=== PATIENT | female | born 1990 | race Caucasian/White ===

== ENCOUNTER 2016-10-17 10:45 | Inpatient (IN) | payer OTHER ==
[2016-10-17 12:07] VITALS: BMI 19.9
--- NOTE | 2016-10-17 14:55 | HP ---
Admission [facility] Chief Complaint: DETOX [place] FOR HEROIN,ALCOHOL AND BENZO DEPENDENCE Allergies/Adverse Reactions: Allergies Allergy/AdvReac Type Severity Reaction Status Date / Time No Known Allergies Allergy Verified 10/17/16 13:39 History of Present Illness: 26 Y/O AA/FEMALE WITH A HX OF HEROIN,XANAX,KLONOPIN,COCAINE AND ALCOHOL DEPENDENCE SEEKING DETOX [place]. Exam Limitations: No Limitations - Ebola screening Have you traveled outside of the country in the last 21 days: No Have you had contact with anyone from an Ebola affected area: No Have you been sick,other than usual withdrawal symptoms: No Do you have a fever: No - Review of Systems Constitutional: Chills, Loss of Appetite, Night Sweats, Changes in sleep EENT: reports: Tearing, Nose Congestion Respiratory: reports: No Symptoms reported Cardiac: reports: No Symptoms Reported GI: reports: Diarrhea, Poor Appetite, Poor Fluid Intake : reports: No Symptoms Reported Musculoskeletal: reports: Muscle Pain (AND SPASMS) Integumentary: reports: Other (SORENESS TO IVD INJ SITES ON UPPER ARMS/THIGHS) Neuro: reports: No Symptoms reported Endocrine: reports: No Symptoms Reported Hematology: reports: Anemia Psychiatric: reports: Orientated x3, Agitated, Anxious Other Systems: Reviewed and Negative Patient History - Patient Medical History Hx Anemia: Yes (NO PILLS) Hx Asthma: No Hx Chronic Obstructive Pulmonary Disease (COPD): No Hx Cardiac Disorders: No Hx Hypertension: No Hx Hypercholesterolemia: No HX Cerebrovascular Accident: No Hx Seizures: No Hx Diabetes: No Hx Gastrointestinal Disorders: No Hx Genitourinary Disorders: No Hx Sexually Transmitted Disorders: No Hx Renal Disease (ESRD): No Hx Thyroid Disease: No Hx Human Immunodeficiency Virus (HIV): No (NEGATIVE HX) Hx Hepatitis C: No Hx Depression: No Hx Suicide Attempt: No (DENIES) Hx Bipolar Disorder: No Hx Schizophrenia: No - Patient Surgical History Past Surgical History: No Hx Neurologic Surgery: No Hx Cataract Extraction: No Hx Cardiac Surgery: No Hx Lung Surgery: No Hx Breast Surgery: No Hx Breast Biopsy: No Hx Abdominal Surgery: No Hx Appendectomy: No Hx Cholecystectomy: No Hx Genitourinary Surgery: No Hx Section: No Hx Orthopedic Surgery: No Hx Hysterectomy: No Anesthesia Reaction: No - PPD History Previous Implant?: Yes Documented Results: Negative w/o proof Implanted On Prior [facility] Admission?: No Results: TBD PPD to be Administered?: Yes - Reproductive History Patient is a Female of Child Bearing Age (11 -55 yrs old): Yes Last Menstrual Period: 09/17/16 Patient : No - Smoking Cessation Smoking history: Current every day smoker Have you smoked in the past 12 months: Yes Aproximately how many cigarettes per day: 2 Hx Chewing Tobacco Use: No Initiated information on smoking cessation: Yes 'Breaking Loose' booklet given: 10/17/16 - Substance & Tx. History Hx Alcohol Use: Yes (VODKA/WHISKY/CHAMPAGNE) Hx Substance Use: Yes (HEROIN/COCAINE/XANAX/KLONOPIN) Substance Use Type: Alcohol, Cocaine, Heroin, Tranquilizers Hx Substance Use Treatment: No (FIRST TIME IN [place] TODAY) - Substances Abused Heroin Route: Injection Frequency: Daily Amount used: 10 bags and up Age of first use: 25 Date of Last Use: 10/16/16 Alcohol Route: Oral Frequency: 3-6 times per week Amount used: 6 cups of vodka or whiskey Age of first use: 20 Date of Last Use: 10/12/16 xanax or klonopin Route: Oral Frequency: Daily Amount used: 10mg Age of first use: 25 Date of Last Use: 10/16/16 Cocaine Frequency: 1-3 times last 30 days Amount used: 10 BAGS/DAY Age of first use: 25 Date of Last Use: 10/06/16 Family Disease History - Family Disease History Family History: Denies Admission Physical Exam BHS - Vital Signs Vital Signs: Vital Signs - 24 hr 10/17/16 12:05 Temperature 98 F Pulse Rate 83 Respiratory 16 Rate Blood Pressure 105/64 - Physical General Appearance: Yes: Moderate Distress, Anxious HEENTM: Yes: EOMI, Normocephalic, [place], Pharynx Normal Respiratory: Yes: Chest Non-Tender, Lungs Clear, Normal Breath Sounds, No Respiratory Distress Neck: Yes: Supple, Trachea in good position Breast: Yes: Breast Exam Deferred Cardiology: Yes: Regular Rhythm, Regular Rate, S1, S2 Abdominal: Yes: Normal Bowel Sounds, Non Tender, Soft Genitourinary: Yes: Other (N/C) Back: Yes: Within Normal Limits Musculoskeletal: Yes: full range of Motion, Gait Steady Extremities: Yes: Normal Range of Motion, Non-Tender Neurological: Yes: rn occupational health II-XII NML intact, Fully Oriented, Alert, Motor Strength 5/5 Integumentary: Yes: Dry, Warm Lymphatic: Yes: Within Normal Limits - Diagnostic (1) Opioid dependence with withdrawal Current Visit: Yes Status: Acute (2) Sedative, hypnotic or anxiolytic dependence with withdrawal, uncomplicated Current Visit: Yes Status: Acute (3) Alcohol dependence with uncomplicated withdrawal Current Visit: Yes Status: Acute (4) Cocaine abuse Current Visit: Yes Status: Acute (5) History of anemia Current Visit: Yes Status: Suspected Cleared for Admission [facility] - Detox or Rehab [facility] Level of Care: Medically Managed Detox Regimen/Protocol: Methadone/Valium [facility] Breath Alcohol Content Breath Alcohol Content: 0 Urine Pregancy Test - Result Urine Test Results: Negative- NO Line Present Urine Drug Screen - Results Drug Screen Negative: No Urine Drug Screen Results: WONG-Cocaine, OPI-Opiates, MDMA-Ecstasy, BZO- Benzodiazepines, OXY-Oxycodone
[2016-10-17] MEDS ORDERED: MENTHOL/PHENOL 1 EACH UD MM PRN (15:12)
[2016-10-17] MEDS ORDERED: diphenhydrAMINE HCL 50 MG CAPSULE PO PRN (15:12)
[2016-10-17] MEDS ORDERED: guaiFENesin/D-METHORPHAN HB 10 ML UNIT-DOSE CUPS PO PRN (15:12)
[2016-10-17] MEDS ORDERED: MAG HYDROX/AL HYDROX/SIMETH 30 ML UNIT-DOSE CUP PO PRN (15:12)
[2016-10-17] MEDS ORDERED: IBUPROFEN 400 MG TABLET (FP) PO PRN (15:12)
[2016-10-17] MEDS ORDERED: ACETAMINOPHEN 325 MG TABLET (FP) PO PRN (15:12)
[2016-10-17] MEDS ORDERED: MAGNESIUM HYDROX 2400MG/30ML ORAL SUSPENSION 30 ML CUP PO PRN (15:12)
[2016-10-17] MEDS ORDERED: LOPERAMIDE HCL 2 MG CAPSULE PO PRN (15:12)
[2016-10-17] MEDS ORDERED: diazePAM 5 MG TABLET PO PRN (15:12)
[2016-10-17] MEDS ORDERED: NICOTINE POLACRILEX 2 MG GUM BC PRN (15:12)
[2016-10-17] MEDS ORDERED: MAGNESIUM CITRATE 300 ML BOTTLE PO PRN (15:12)
[2016-10-17] MEDS ORDERED: P-EPHED 60MG/TRIPROLIDI 2.5MG TABLET PO PRN (15:12)
[2016-10-17] MEDS ORDERED: diazePAM 5 MG TABLET PO ONE (15:31)
[2016-10-17] MEDS ORDERED: METHADONE HCL 10 MG TABLET (FOR DETOX USE ONLY) PO ONE ×2 (15:32→23:00)
[2016-10-17] MEDS ORDERED: METHADONE HCL 10 MG TABLET (FOR DETOX USE ONLY) ONE (17:50)
[2016-10-17 19:26] LABS: URINE APPEARANCE SLCLOUDY; URINE BILIRUBIN NEGATIVE (NEGATIVE); URINE BLOOD NEGATIVE (NEGATIVE); URINE COLOR YELLOW; URINE GLUCOSE (UA) NEGATIVE (NEGATIVE); URINE KETONE NEGATIVE (NEGATIVE); URINE LEUK ESTERASE NEGATIVE (NEGATIVE); URINE NITRITE NEGATIVE (NEGATIVE); URINE PROTEIN NEGATIVE (NEGATIVE); URINE UROBILINOGEN NEGATIVE E.U./dl (0.2-1.0)
[2016-10-17] MEDS: hydrOXYzine PAMOATE 25 MG CAPSULE (FP) PO PRN (19:58)
[2016-10-17] MEDS: NICOTINE 14 MG/24 HOURS TOPICAL PATCH TD SCH (20:25)
[2016-10-17] MEDS ORDERED: THIAMINE HCL 100 MG TABLET (FP) PO SCH (22:00)
[2016-10-17] MEDS: diazePAM 5 MG TABLET PO SCH (22:27)
[2016-10-18] MEDS: diazePAM 5 MG TABLET PO SCH (05:40)
[2016-10-18] MEDS ORDERED: ASPIRIN 81 MG CHEWABLE TABLETS PO SCH (10:00)
[2016-10-18] MEDS: NICOTINE 14 MG/24 HOURS TOPICAL PATCH TD SCH (10:00)
[2016-10-18] MEDS ORDERED: PRENATAL VITAMINS W/ FOLIC ACID TABLET (FP) PO SCH (10:00)
[2016-10-18] MEDS ORDERED: METHADONE HCL 10 MG TABLET (FOR DETOX USE ONLY) PO SCH (10:00)
[2016-10-18] MEDS: hydrOXYzine PAMOATE 25 MG CAPSULE (FP) PO PRN (10:00)
[2016-10-18 10:01] VITALS: BP 112/84; PULSE 93; TEMP 98.1
[2016-10-18 10:14] LABS: MCHC 28.9 g/dl (32.0-36.0); MEAN CELL VOLUME 67.7 fl (80-96); MEAN PLT VOLUME 8.7 fl (7.5-11.1); PLATELET COUNT 436 K/MM3 (134-434); RDW 18.8 % (11.6-15.6); WHITE BLOOD COUNT 7.6 K/mm3 (4.0-10.0)
[2016-10-18 10:21] LABS: MCH 19.5 pg (25.7-33.7)
[2016-10-18 10:42] LABS: ALBUMIN 4.2 g/dl (3.4-5.0); ALK PHOS 70 U/L (45-117); ANION GAP 10 (8-16); BILIRUBIN,TOTAL 0.4 mg/dL (0.2-1.0); CALCIUM 9.3 mg/dL (8.5-10.1); CO2 26 mmol/L (21-32); CREATININE 0.7 mg/dL (0.55-1.02); GLUCOSE,RANDOM 76 mg/dL (74-106); SGOT/AST 27 U/L (15-37); SGPT/ALT 15 U/L (12-78); TOT PROT 8.4 g/dl (6.4-8.2)
--- NOTE | 2016-10-18 10:59 | DS ---
[facility] Detox Discharge Summary Admission Date: 10/17/16 Discharge Date: 10/18/16 - History Present History: Alcohol Dependence, Cocaine Dependence, Opioid Dependence, Sedative Dependence - Physical Exam Results Vital Signs: Vital Signs Temperature 98.1 F 10/18/16 10:00 Pulse Rate 93 H 10/18/16 10:00 Respiratory Rate 20 10/18/16 10:00 Blood Pressure 112/84 10/18/16 10:00 O2 Sat by Pulse Oximetry (%) - Treatment Hospital Course: Detox Protocol Followed - Diagnosis (1) Alcohol dependence with uncomplicated withdrawal Current Visit: Yes Status: Chronic (2) Cocaine abuse Current Visit: Yes Status: Chronic (3) Opioid dependence with withdrawal Current Visit: Yes Status: Acute (4) Sedative, hypnotic or anxiolytic dependence with withdrawal, uncomplicated Current Visit: Yes Status: Chronic (5) History of anemia Current Visit: Yes Status: Chronic - AMA Did Patient Leave Against Medical Advice: Yes (pt insistent on leaving unit . )
[2016-10-18 11:53] LABS: SICKLE CELL SCREEN NEGATIVE (NEGATIVE)
[2016-10-18 12:24] LABS: HYPOCHROMIA 4+
[2016-10-18 12:25] LABS: ANISOCYTOSIS 2+; MICROCYTOSIS 2+; OVALOCYTES 1+; TARGET CELLS 1+
--- NOTE | 2016-10-18 12:28 | EKG ---
Test Reason : Blood Pressure : / mmHG Vent. Rate : 070 BPM Atrial Rate : 070 BPM P-R Int : 148 ms QRS Dur : 076 ms QT Int : 368 ms P-R-T Axes : 043 054 045 degrees QTc Int : 397 ms NORMAL SINUS RHYTHM WITH SINUS ARRHYTHMIA SEPTAL INFARCT , AGE UNDETERMINED ABNORMAL ECG NO PREVIOUS ECGS AVAILABLE Confirmed by MYRON BANEGAS MD ([id number]) on 10/18/2016 12:28:10 PM Referred By: Confirmed By:MYRON BANEGAS MD
[2016-10-19] MEDS ORDERED: diazePAM 5 MG TABLET PO SCH (10:00)
[2016-10-19] MEDS ORDERED: METHADONE HCL 5 MG TABLET (FOR DETOX USE ONLY) PO SCH (10:00)
--- NOTE | 2016-10-19 16:18 | EKG ---
Test Reason : Blood Pressure : / mmHG Vent. Rate : 078 BPM Atrial Rate : 078 BPM P-R Int : 158 ms QRS Dur : 088 ms QT Int : 396 ms P-R-T Axes : 035 042 038 degrees QTc Int : 451 ms NORMAL SINUS RHYTHM NORMAL ECG WHEN COMPARED WITH ECG OF 17-OCT-2016 17:36, CRITERIA FOR SEPTAL INFARCT ARE NO LONGER PRESENT Confirmed by ANNAMARIA OLIVEIRA MD ([id number]) on 10/19/2016 4:18:38 PM Referred By: Confirmed By:ANNAMARIA OLIVEIRA MD
[2016-10-21] MEDS ORDERED: diazePAM 5 MG TABLET PO SCH (10:00)
[2016-10-21] MEDS ORDERED: METHADONE HCL 10 MG TABLET (FOR DETOX USE ONLY) PO SCH (10:00)
[2016-10-22] MEDS ORDERED: METHADONE HCL 5 MG TABLET (FOR DETOX USE ONLY) PO SCH (06:00)
== END 2016-10-18 10:55 | disposition left against medical advice (07) | DRG 770 ==
LOC: YASAS 10:45 → Y6N 15:28
PROVIDERS: ADMIT Internal Medicine Addiction Medicine; ATTEND Internal Medicine Addiction Medicine
PROC: HZ2ZZZZ Detoxification Services for Substance Abuse Treatment (ICD-10-PCS; principal; 2016-10-18)
DX: F11.23 Opioid dependence with withdrawal (principal); F13.230 Sedative, hypnotic or anxiolytic dependence with withdrawal, uncomplicated; F10.230 Alcohol dependence with withdrawal, uncomplicated; F41.8 Other specified anxiety disorders; D64.9 Anemia, unspecified
CPT/HCPCS: 36415; 80053; 81003; 85027; 85660; 86593; 93005; 93010

== ENCOUNTER 2017-03-20 08:22 | Inpatient (IN) | payer OTHER ==
[2017-03-20 10:05] VITALS: BMI 21.9
--- NOTE | 2017-03-20 13:01 | HP ---
COWS - Scale Resting Pulse: 0= ME 80 or Below Sweatin= Chills/Flushing Restless Observation: 3= Extraneous Movement Pupil Size: 0= Normal to Room Light Bone or Joint Aches: 2= Severe Diffuse Aches Runny Nose/ Eye Tearin= Runny Nose/Eyes GI Upset > 30mins: 1= Stomach Cramp Tremor Observation: 1= Tremor [place], Not Seen Yawning Observation: 1= 1-2x During Session Anxiety or Irritability: 2=Irritable/Anxious Goose Flesh Skin: 0=Smooth Skin COWS Score: 13 Admission ROS S - HPI Chief Complaint: DETOX [place] FOR HEROIN DEPENDENCE Allergies/Adverse Reactions: Allergies Allergy/AdvReac Type Severity Reaction Status Date / Time No Known Allergies Allergy Verified 03/20/17 10:22 History of Present Illness: 26 Y/O AA/MALE WITH A X OF HEROIN, COCAINE AND MARIJUANA DEPENDENCE SEEKING REHAB [place]. Exam Limitations: No Limitations - Ebola screening Have you traveled outside of the country in the last 21 days: No Have you had contact with anyone from an Ebola affected area: No Have you been sick,other than usual withdrawal symptoms: No Do you have a fever: No - Review of Systems Constitutional: Chills, Loss of Appetite, Night Sweats, Changes in sleep, Unintentional Wgt. Loss EENT: reports: Blurred Vision, Tearing, Dental Problems (SENSITIVE TEETH/TOOTH ACHES) Respiratory: reports: No Symptoms reported Cardiac: reports: No Symptoms Reported GI: reports: Diarrhea, Nausea, Poor Appetite, Poor Fluid Intake, Vomiting, Abdominal cramping : reports: No Symptoms Reported Musculoskeletal: reports: Back Pain, Joint Pain, Muscle Pain Integumentary: reports: Other (TATTOO HANDS) Neuro: reports: Tremors, Unsteady Gait Endocrine: reports: No Symptoms Reported Hematology: reports: Anemia Psychiatric: reports: Orientated x3, Anxious, Depressed Other Systems: Reviewed and Negative Patient History - Patient Medical History Hx Anemia: Yes (NO PILLS) Hx Asthma: No Hx Chronic Obstructive Pulmonary Disease (COPD): No Hx Cardiac Disorders: No Hx Hypertension: No Hx Hypercholesterolemia: No HX Cerebrovascular Accident: No Hx Seizures: No Hx Diabetes: No Hx Gastrointestinal Disorders: No Hx Genitourinary Disorders: No Hx Sexually Transmitted Disorders: No Hx Renal Disease (ESRD): No Hx Thyroid Disease: No Hx Human Immunodeficiency Virus (HIV): No (NEGATIVE HX) Hx Hepatitis C: No Hx Depression: Yes (BUT DECLINES EVAL) Hx Suicide Attempt: No (DENIES) Hx Bipolar Disorder: No Hx Schizophrenia: No - Patient Surgical History Past Surgical History: Yes Hx Neurologic Surgery: No Hx Cataract Extraction: No Hx Cardiac Surgery: No Hx Lung Surgery: No Hx Breast Surgery: No Hx Breast Biopsy: No Hx Abdominal Surgery: No Hx Appendectomy: No Hx Cholecystectomy: No Hx Genitourinary Surgery: No Hx Section: No Hx Orthopedic Surgery: Yes (BOTH UPPER ARM DUE TO IMDU ABCESS 12/2016) Hx Hysterectomy: No Anesthesia Reaction: No - PPD History Previous Implant?: Yes Implanted On Prior [facility] Admission?: Yes Date: 10/19/16 PPD to be Administered?: No - Reproductive History Last Menstrual Period: 02/18/17 Patient : No - Smoking Cessation Smoking history: Current every day smoker Have you smoked in the past 12 months: Yes Aproximately how many cigarettes per day: 2 Hx Chewing Tobacco Use: No Initiated information on smoking cessation: Yes - Substance & Tx. History Hx Alcohol Use: No Hx Substance Use: Yes (HEROIN/COCAINE/MARIJUANA) Substance Use Type: Cocaine, Heroin, Marijuana Hx Substance Use Treatment: Yes (LAST [place] AT [facility] DETOX) - Substances Abused Heroin Route: IM Frequency: Daily Amount used: 20 bags Age of first use: 25 Date of Last Use: 03/19/17 Cocaine Route: Inhalation Frequency: Daily Amount used: 2 bags Age of first use: 21 Date of Last Use: 03/16/17 Marijuana/Hashish Route: Smoking Frequency: Daily Amount used: $20 Age of first use: 13 Date of Last Use: 03/18/17 Family Disease History - Family Disease History Family History: Denies Admission Physical Exam BHS - Vital Signs Vital Signs: Vital Signs - 24 hr 03/20/17 10:01 Temperature 98.3 F Pulse Rate 69 Respiratory 18 Rate Blood Pressure 109/71 - Physical General Appearance: Yes: Mild Distress, Anxious HEENTM: Yes: EOMI, Normocephalic, [place], Pharynx Normal Respiratory: Yes: Chest Non-Tender, Lungs Clear, Normal Breath Sounds, No Respiratory Distress Neck: Yes: No masses,lesions,Nodules, Supple, Trachea in good position Breast: Yes: Breast Exam Deferred Cardiology: Yes: Regular Rhythm, Regular Rate, S1, S2 Abdominal: Yes: Normal Bowel Sounds, Non Tender, Soft Genitourinary: Yes: Other (N/C) Back: Yes: Within Normal Limits Musculoskeletal: Yes: full range of Motion, Gait Steady Extremities: Yes: Normal Range of Motion, Non-Tender Neurological: Yes: histological illustrator II-XII NML intact, Fully Oriented, Alert, Motor Strength 5/5 Integumentary: Yes: Dry, Warm, Other (LEFT UPPER ARM SX SCAR DUE TO I.M DRUG USE TRUAMA RIGHT SHOULDER WITH POINT SCARS DUE TO SX FROM SAME I.M DRUG USE TRUAMA) Lymphatic: Yes: Within Normal Limits - Diagnostic (1) Opioid dependence with withdrawal Current Visit: Yes Status: Acute (2) Alcohol dependence with uncomplicated withdrawal Current Visit: No Status: Inactive (3) History of anemia Current Visit: No Status: Chronic (4) Sedative, hypnotic or anxiolytic dependence with withdrawal, uncomplicated Current Visit: No Status: Inactive (5) Cocaine dependence, uncomplicated Current Visit: Yes Status: Acute (6) Cannabis dependence, uncomplicated Current Visit: Yes Status: Acute Cleared for Admission [facility] - Detox or Rehab [facility] Level of Care: Medically Managed Detox Regimen/Protocol: Methadone [facility] Breath Alcohol Content Breath Alcohol Content: 0 Urine Pregancy Test - Result Urine Test Results: Negative- NO Line Present Urine Drug Screen - Results Drug Screen Negative: No Urine Drug Screen Results: THC-Marijuana, WONG-Cocaine, OPI-Opiates, OXY- Oxycodone
[2017-03-20] MEDS ORDERED: hydrOXYzine PAMOATE 25 MG CAPSULE (FP) PO PRN (13:24)
[2017-03-20] MEDS ORDERED: guaiFENesin/D-METHORPHAN HB 10 ML UNIT-DOSE CUPS PO PRN (13:24)
[2017-03-20] MEDS ORDERED: MAGNESIUM HYDROX 2400MG/30ML ORAL SUSPENSION 30 ML CUP PO PRN (13:24)
[2017-03-20] MEDS ORDERED: IBUPROFEN 400 MG TABLET (FP) PO PRN (13:24)
[2017-03-20] MEDS ORDERED: LOPERAMIDE HCL 2 MG CAPSULE PO PRN (13:24)
[2017-03-20] MEDS ORDERED: MAGNESIUM CITRATE 300 ML BOTTLE PO PRN (13:24)
[2017-03-20] MEDS ORDERED: ACETAMINOPHEN 325 MG TABLET (FP) PO PRN (13:24)
[2017-03-20] MEDS ORDERED: diphenhydrAMINE HCL 50 MG CAPSULE PO PRN (13:24)
[2017-03-20] MEDS ORDERED: MENTHOL/PHENOL 1 EACH UD MM PRN (13:24)
[2017-03-20] MEDS ORDERED: P-EPHED 60MG/TRIPROLIDI 2.5MG TABLET PO PRN (13:24)
[2017-03-20] MEDS ORDERED: MAG HYDROX/AL HYDROX/SIMETH 30 ML UNIT-DOSE CUP PO PRN (13:24)
[2017-03-20] MEDS ORDERED: METHADONE HCL 10 MG TABLET (FOR DETOX USE ONLY) PO ONE ×2 (14:04→23:00)
[2017-03-20] MEDS: diazePAM 5 MG TABLET PO PRN ×2 (14:57→19:09)
[2017-03-20 15:23] VITALS: TEMP 98.1
[2017-03-20 16:42] LABS: URINE APPEARANCE CLOUDY; URINE BILIRUBIN NEGATIVE (NEGATIVE); URINE BLOOD NEGATIVE (NEGATIVE); URINE COLOR YELLOW; URINE GLUCOSE (UA) NEGATIVE (NEGATIVE); URINE KETONE TRACE (NEGATIVE); URINE NITRITE NEGATIVE (NEGATIVE); URINE PROTEIN NEGATIVE (NEGATIVE); URINE UROBILINOGEN NEGATIVE mg/dL (0.2-1.0)
[2017-03-20 16:45] LABS: URINE LEUK ESTERASE 1+ (NEGATIVE)
--- NOTE | 2017-03-20 16:59 | EKG ---
Test Reason : Blood Pressure : / mmHG Vent. Rate : 064 BPM Atrial Rate : 064 BPM P-R Int : 152 ms QRS Dur : 086 ms QT Int : 408 ms P-R-T Axes : 044 044 036 degrees QTc Int : 420 ms NORMAL SINUS RHYTHM WITH SINUS ARRHYTHMIA NORMAL ECG WHEN COMPARED WITH ECG OF 18-OCT-2016 07:06, NO SIGNIFICANT CHANGE WAS FOUND Confirmed by NANDO ANDREA MD ([id number]) on 03/20/2017 4:58:53 PM Referred By: Confirmed By:NANDO ANDREA MD
[2017-03-20 17:26] VITALS: BP 92/53; PULSE 84
[2017-03-20 18:51] LABS: HIV 1 & 2 AB NEGATIVE; HIV 1 AGp24 NEGATIVE
[2017-03-20 19:16] LABS: CALCIUM OXALATE CRYSTALS MODERATE /hpf (NONE SEEN); URINE MUCUS MANY; URINE RBC 3 /hpf (0-3); URINE WBC 4 /hpf (3-5)
--- NOTE | 2017-03-20 21:15 | PN ---
S Progress Note Note: NEIGHBORHOOD AIDE called to the floor to speak to the pt. who requested to leave AMA. Pt. stated she is not mentally ready to completed detox. She is a&ox3; self- directing. Denied SI/HI. VSS. Not signs of distress noted. She stated she wanted to go home and was familiar with how to get home using public transportation.
[2017-03-20] MEDS ORDERED: THIAMINE HCL 100 MG TABLET (FP) PO SCH (22:00)
[2017-03-21] MEDS ORDERED: METHADONE HCL 10 MG TABLET (FOR DETOX USE ONLY) PO ONE (10:00)
[2017-03-21] MEDS ORDERED: PRENATAL VITAMINS W/ FOLIC ACID TABLET (FP) PO SCH (10:00)
[2017-03-22] MEDS ORDERED: METHADONE HCL 5 MG TABLET (FOR DETOX USE ONLY) PO ONE (10:00)
[2017-03-23] MEDS ORDERED: METHADONE HCL 5 MG TABLET (FOR DETOX USE ONLY) PO ONE (10:00)
[2017-03-24] MEDS ORDERED: METHADONE HCL 10 MG TABLET (FOR DETOX USE ONLY) PO ONE (10:00)
[2017-03-25] MEDS ORDERED: METHADONE HCL 5 MG TABLET (FOR DETOX USE ONLY) PO ONE (06:00)
== END 2017-03-20 21:25 | disposition left against medical advice (07) | DRG 770 ==
LOC: YASAS 08:22 → Y3N 11:40 → Y6N 12:13
PROVIDERS: ADMIT Internal Medicine Addiction Medicine; ATTEND Internal Medicine Addiction Medicine
PROC: HZ2ZZZZ Detoxification Services for Substance Abuse Treatment (ICD-10-PCS; principal; 2017-03-20)
DX: F11.23 Opioid dependence with withdrawal (principal); F13.230 Sedative, hypnotic or anxiolytic dependence with withdrawal, uncomplicated; F10.230 Alcohol dependence with withdrawal, uncomplicated; F14.20 Cocaine dependence, uncomplicated; F12.20 Cannabis dependence, uncomplicated; Z86.2 Personal history of diseases of the blood and blood-forming organs and certain disorders involving the immune mechanism
CPT/HCPCS: 36415; 81003; 81015; 87389; 93005; 93010

== ENCOUNTER 2017-04-30 10:16 | Inpatient (IN) | payer OTHER ==
[2017-04-30 11:06] VITALS: BMI 23.3
--- NOTE | 2017-04-30 13:01 | HP ---
COWS - Scale Resting Pulse: 0= [place] 80 or Below Sweatin=Flushed/Facial Moisture Restless Observation: 1= Difficult to Sit Still Pupil Size: 0= Normal to Room Light Bone or Joint Aches: 2= Severe Diffuse Aches Runny Nose/ Eye Tearin= Runny Nose/Eyes GI Upset > 30mins: 1= Stomach Cramp Tremor Observation: 2= Slight Tremor Visible Yawning Observation: 0= None Anxiety or Irritability: 2=Irritable/Anxious Goose Flesh Skin: 3=Piloerection COWS Score: 15 Admission ROS S - HPI Chief Complaint: I need to detox . Allergies/Adverse Reactions: Allergies Allergy/AdvReac Type Severity Reaction Status Date / Time No Known Allergies Allergy Verified 04/30/17 12:00 History of Present Illness: Pt is a 26yr old female with a history of opioid dependence seeking detox for treatment. Exam Limitations: No Limitations - Ebola screening Have you traveled outside of the country in the last 21 days: No Have you had contact with anyone from an Ebola affected area: No Have you been sick,other than usual withdrawal symptoms: No Do you have a fever: No - Review of Systems Constitutional: Chills, Diaphoresis, Loss of Appetite, Night Sweats, Changes in sleep, Unintentional Wgt. Loss EENT: reports: No Symptoms Reported Respiratory: reports: No Symptoms reported Cardiac: reports: No Symptoms Reported GI: reports: Poor Appetite, Poor Fluid Intake : reports: No Symptoms Reported Musculoskeletal: reports: Back Pain, Joint Pain Integumentary: reports: Flushing, Sweating Neuro: reports: Headache, Tingling, Tremors Endocrine: reports: Excessive Sweating, Flushing, Intolerance to Cold, Intolerance to Heat Hematology: reports: No Symptoms Reported Psychiatric: reports: Judgement Intact, Mood/Affect Appropiate, Orientated x3, Agitated, Anxious Other Systems: Reviewed and Negative Patient History - Patient Medical History Hx Anemia: Yes (NO PILLS) Hx Asthma: No Hx Chronic Obstructive Pulmonary Disease (COPD): No Hx Cancer: No Hx Cardiac Disorders: No Hx Congestive Heart Failure: No Hx Hypertension: No Hx Hypercholesterolemia: No Hx Pacemaker: No HX Cerebrovascular Accident: No Hx Seizures: No Hx Dementia: No Hx Diabetes: No Hx Gastrointestinal Disorders: No Hx Liver Disease: No Hx Genitourinary Disorders: No Hx Sexually Transmitted Disorders: No Hx Renal Disease (ESRD): No Hx Thyroid Disease: No Hx Human Immunodeficiency Virus (HIV): No (NEGATIVE HX) Hx Hepatitis C: No (negative) Hx Depression: Yes Hx Suicide Attempt: No (denies) Hx Bipolar Disorder: No Hx Schizophrenia: No - Patient Surgical History Past Surgical History: Yes Hx Neurologic Surgery: No Hx Cataract Extraction: No Hx Cardiac Surgery: No Hx Lung Surgery: No Hx Breast Surgery: No Hx Breast Biopsy: No Hx Abdominal Surgery: No Hx Appendectomy: No Hx Cholecystectomy: No Hx Genitourinary Surgery: No Hx Section: No Hx Orthopedic Surgery: Yes (BOTH UPPER ARM DUE TO IMDU ABCESS 12/2016) Hx Hysterectomy: No Anesthesia Reaction: No - PPD History Previous Implant?: Yes Documented Results: Negative w/o proof Implanted On Prior [facility] Admission?: Yes Date: 10/19/16 Results: TBD PPD to be Administered?: Yes - Reproductive History Patient is a Female of Child Bearing Age (11 -55 yrs old): Yes Last Menstrual Period: 03/17/17 Patient : No - Smoking Cessation Smoking history: Current every day smoker Have you smoked in the past 12 months: Yes Aproximately how many cigarettes per day: 2 Hx Chewing Tobacco Use: No Initiated information on smoking cessation: Yes 'Breaking Loose' booklet given: 04/30/17 - Substance & Tx. History Hx Alcohol Use: No Hx Substance Use: Yes Substance Use Type: Heroin Hx Substance Use Treatment: Yes (last detox but did not complete 03/2017) - Substances Abused Heroin Route: Injection Frequency: Daily Amount used: 20-30 BAGS Age of first use: 25 Date of Last Use: 04/29/17 Family Disease History - Family Disease History Family History: Denies Admission Physical Exam S - Vital Signs Vital Signs: Vital Signs - 24 hr 04/30/17 11:04 Temperature 98.8 F Pulse Rate 75 Respiratory 18 Rate Blood Pressure 115/74 - Physical General Appearance: Yes: Appropriately Dressed, Moderate Distress, Tremorous, Irritable, Sweating, Anxious HEENTM: Yes: Normal Voice Respiratory: Yes: Lungs Clear, Normal Breath Sounds, No Respiratory Distress Breast: Yes: Within Normal Limits Cardiology: Yes: Regular Rhythm, Regular Rate, S1, S2 Abdominal: Yes: Normal Bowel Sounds, Non Tender, Soft Genitourinary: Yes: Within Normal Limits Back: Yes: Normal Inspection Musculoskeletal: Yes: full range of Motion Extremities: Yes: Within Normal Limits, Normal Range of Motion, Tremors Neurological: Yes: Fully Oriented, Alert, Normal Response Integumentary: Yes: Normal Color, Diaphoresis, Track Ruby Lymphatic: Yes: Within Normal Limits - Diagnostic (1) Opioid dependence with withdrawal Current Visit: Yes Status: Chronic (2) Nicotine dependence Current Visit: Yes Status: Chronic Qualifiers: Nicotine product type: cigarettes Substance use status: uncomplicated Qualified Code(s): F17.210 - Nicotine dependence, cigarettes, uncomplicated Cleared for Admission [facility] - Detox or Rehab [facility] Level of Care: Medically Managed Detox Regimen/Protocol: Methadone [facility] Breath Alcohol Content Breath Alcohol Content: 0 Urine Pregancy Test - Result Urine Test Results: Negative- NO Line Present Urine Drug Screen - Results Drug Screen Negative: No Urine Drug Screen Results: OPI-Opiates
[2017-04-30] MEDS ORDERED: LOPERAMIDE HCL 2 MG CAPSULE PO PRN (13:09)
[2017-04-30] MEDS ORDERED: guaiFENesin/D-METHORPHAN HB 10 ML UNIT-DOSE CUPS PO PRN (13:09)
[2017-04-30] MEDS ORDERED: P-EPHED 60MG/TRIPROLIDI 2.5MG TABLET PO PRN (13:09)
[2017-04-30] MEDS ORDERED: MAGNESIUM CITRATE 300 ML BOTTLE PO PRN (13:09)
[2017-04-30] MEDS ORDERED: hydrOXYzine PAMOATE 50 MG CAPSULE (FP) PO PRN (13:09)
[2017-04-30] MEDS ORDERED: ACETAMINOPHEN 325 MG TABLET (FP) PO PRN (13:09)
[2017-04-30] MEDS ORDERED: NICOTINE POLACRILEX 2 MG GUM BC PRN (13:09)
[2017-04-30] MEDS ORDERED: MAG HYDROX/AL HYDROX/SIMETH 30 ML UNIT-DOSE CUP PO PRN (13:09)
[2017-04-30] MEDS ORDERED: MAGNESIUM HYDROX 2400MG/30ML ORAL SUSPENSION 30 ML CUP PO PRN (13:09)
[2017-04-30] MEDS ORDERED: diphenhydrAMINE HCL 50 MG CAPSULE PO PRN (13:09)
[2017-04-30] MEDS ORDERED: IBUPROFEN 400 MG TABLET (FP) PO PRN (13:09)
[2017-04-30] MEDS ORDERED: MENTHOL/PHENOL 1 EACH UD MM PRN (13:09)
[2017-04-30] MEDS ORDERED: METHADONE HCL 10 MG TABLET (FOR DETOX USE ONLY) PO ONE ×2 (14:00→23:00)
[2017-04-30] MEDS: diazePAM 5 MG TABLET PO PRN ×3 (14:46→22:21)
[2017-04-30 17:08] LABS: URINE APPEARANCE CLEAR; URINE BILIRUBIN NEGATIVE (NEGATIVE); URINE BLOOD NEGATIVE (NEGATIVE); URINE COLOR YELLOW; URINE GLUCOSE (UA) NEGATIVE (NEGATIVE); URINE KETONE NEGATIVE (NEGATIVE); URINE LEUK ESTERASE NEGATIVE (NEGATIVE); URINE NITRITE NEGATIVE (NEGATIVE); URINE PROTEIN NEGATIVE (NEGATIVE); URINE UROBILINOGEN NEGATIVE mg/dL (0.2-1.0)
[2017-04-30] MEDS ORDERED: THIAMINE HCL 100 MG TABLET (FP) PO SCH (22:00)
[2017-05-01] MEDS: diazePAM 5 MG TABLET PO PRN (05:52)
[2017-05-01 06:35] VITALS: BP 122/76; PULSE 82; TEMP 98.2
--- NOTE | 2017-05-01 07:11 | PN ---
[facility] Progress Note Note: CERTIFIED PHARMACY TECHNICIAN CALLED TO THE FLOOR BY RN SPEAK TO THE PATIENT, WHO REQUESTED TO LEAVE AMA. THE PT. STATED SHE WANTED TO LEAVE. SHE DID NOT GIVE A REASON TO WHY SHE WAS LEAVING BUT SHE WAS ADAMANT SHE WAS LEAVING. SHE STATED SHE DID NOT NEED ANY MEDICATION REFILLS. SHE WAS ENCOURAGED TO COMPLETE TREATMENT AND OF THE RISKS OF NOT COMPLETING TREATMENT; PT. VERBALIZED UNDERSTANDING.
[2017-05-01 09:23] LABS: HIV 1 & 2 AB NEGATIVE; HIV 1 AGp24 NEGATIVE
[2017-05-01] MEDS ORDERED: METHADONE HCL 10 MG TABLET (FOR DETOX USE ONLY) PO ONE (10:00)
[2017-05-01] MEDS ORDERED: NICOTINE 7 MG/24 HOURS TOPICAL PATCH TD SCH (10:00)
[2017-05-01] MEDS ORDERED: PRENATAL VITAMINS W/ FOLIC ACID TABLET (FP) PO SCH (10:00)
[2017-05-01 10:18] LABS: MCH 27.6 pg (25.7-33.7); MCHC 31.7 g/dl (32.0-36.0); MEAN PLT VOLUME 9.6 fl (7.5-11.1); PLATELET COUNT 346 K/MM3 (134-434); RDW 14.7 % (11.6-15.6); WHITE BLOOD COUNT 6.1 K/mm3 (4.0-10.0)
[2017-05-01 11:09] LABS: ALK PHOS 80 U/L (45-117); ANION GAP 7 (8-16); BILIRUBIN,TOTAL 0.3 mg/dL (0.2-1.0); CALCIUM 9.7 mg/dL (8.5-10.1); CO2 30 mmol/L (21-32); CREATININE 0.8 mg/dL (0.55-1.02); GLUCOSE,RANDOM 86 mg/dL (74-106); SGOT/AST 17 U/L (15-37); SGPT/ALT 12 U/L (12-78); TOT PROT 8.5 g/dl (6.4-8.2)
[2017-05-02] MEDS ORDERED: METHADONE HCL 5 MG TABLET (FOR DETOX USE ONLY) PO ONE (10:00)
[2017-05-03] MEDS ORDERED: METHADONE HCL 5 MG TABLET (FOR DETOX USE ONLY) PO ONE (10:00)
--- NOTE | 2017-05-03 11:38 | EKG ---
Test Reason : Blood Pressure : / mmHG Vent. Rate : 065 BPM Atrial Rate : 065 BPM P-R Int : 148 ms QRS Dur : 088 ms QT Int : 398 ms P-R-T Axes : 036 035 034 degrees QTc Int : 413 ms NORMAL SINUS RHYTHM NORMAL ECG WHEN COMPARED WITH ECG OF 20-MAR-2017 13:48, NO SIGNIFICANT CHANGE WAS FOUND Confirmed by ANNAMARIA OLIVEIRA MD ([id number]) on 05/03/2017 11:38:13 AM Referred By: Confirmed By:ANNAMARIA OLIVEIRA MD
[2017-05-04] MEDS ORDERED: METHADONE HCL 10 MG TABLET (FOR DETOX USE ONLY) PO ONE (10:00)
[2017-05-05] MEDS ORDERED: METHADONE HCL 5 MG TABLET (FOR DETOX USE ONLY) PO ONE (06:00)
== END 2017-05-01 07:20 | disposition home or self-care (01) | DRG 773 ==
LOC: YASAS 10:16 → Y6N 13:15
PROVIDERS: ADMIT Internal Medicine Addiction Medicine; ATTEND Internal Medicine Addiction Medicine
PROC: HZ2ZZZZ Detoxification Services for Substance Abuse Treatment (ICD-10-PCS; principal; 2017-05-01)
DX: F11.20 Opioid dependence, uncomplicated (principal); F17.210 Nicotine dependence, cigarettes, uncomplicated; F32.9 Major depressive disorder, single episode, unspecified
CPT/HCPCS: 36415; 80053; 81003; 85027; 86593; 87389; 93005; 93010

== ENCOUNTER 2018-08-05 13:29 | Inpatient (IN) | payer MEDICARE, OTHER ==
[2018-08-05 16:16] VITALS: BMI 19.2
--- NOTE | 2018-08-05 18:23 | HP ---
COWS - Scale Resting Pulse: 0= [place] 80 or Below Sweatin=Flushed/Facial Moisture Restless Observation: 3= Extraneous Movement Pupil Size: 2= Moderately Dilated (4 mm) Bone or Joint Aches: 0= None Runny Nose/ Eye Tearin= Runny Nose/Eyes GI Upset > 30mins: 1= Stomach Cramp Tremor Observation: 2= Slight Tremor Visible Yawning Observation: 0= None Anxiety or Irritability: 2=Irritable/Anxious Goose Flesh Skin: 0=Smooth Skin COWS Score: 14 CIWA Score - Admission Criteria OASAS Guidelines: Admission for Medically Managed Detox: Requires at least one of the followin. CIWA greater than 12 2. Seizures within the past 24 hours 3. Delirium tremens within the past 24 hours 4. Hallucinations within the past 24 hours 5. Acute intervention needed for co occurring medical disorder 6. Acute intervention needed for co occurring psychiatric disorder 7. Severe withdrawal that cannot be handled at a lower level of care (continued vomiting, continued diarrhea, abnormal vital signs) requiring intravenous medication and/or fluids 8. Admission ROS [facility] Chief Complaint: Here for heroin withdrawal. Allergies/Adverse Reactions: Allergies Allergy/AdvReac Type Severity Reaction Status Date / Time No Known Allergies Allergy Verified 08/05/18 17:08 History of Present Illness: States I'm here for heroin detox. Heroin use since age 25. Injects drugs states IM into thigh. States never shares needles or works. Cocaine use since age 22. Hx: Palpitations r/t cocaine use and subsequent tingles in (L) arm. Hx blackouts and seizures - 2 months ago. Denies overdose. Hx. Anemia w/ blood transfusion in December 2017. Prescribed iron pills but not taking because it causes constipation. Patient states hx constipation but does not want to take a stool softener at this time. last BM yesterday. States it was hard and of brownish color. Denies STD's, not sexually active. Denies other significan PMH/PSH Search Terms: Jenn Baldwin, 1990 Search Date: 08/05/2018 06:18:21 PM The Drug Utilization Report below displays all of the controlled substance prescriptions, if any, that your patient has filled in the last twelve months. The information displayed on this report is compiled from pharmacy submissions to the Department, and accurately reflects the information as submitted by the pharmacies. This report was requested by: Iris Trejo | Reference #: [id number] There are no results for the search terms that you entered. Exam Limitations: No Limitations - Ebola screening Have you traveled outside of the country in the last 21 days: No Have you had contact with anyone from an Ebola affected area: No Have you been sick,other than usual withdrawal symptoms: No Do you have a fever: No - Review of Systems Constitutional: Chills, Diaphoresis, Changes in sleep (Difficulty falling asleep. Sleeps during day on occassion.) EENT: reports: Dental Problems (Has a cavity. Able to chew and swallow w/o difficulty), Other (Light sensititivty. Lights causes headaches.) Respiratory: reports: No Symptoms reported Cardiac: reports: Palpitations (States r/t cocaine use and subsequent tingles in (L) arm.) GI: reports: Constipated (States r/t heroin use.), Abdominal cramping : reports: No Symptoms Reported Musculoskeletal: reports: No Symptoms Reported Integumentary: reports: No Symptoms Reported Neuro: reports: Tremors Endocrine: reports: No Symptoms Reported Hematology: reports: Anemia (States shiould be on iron pills but stopped because they caused constipation.) Psychiatric: reports: Judgement Intact, Agitated, Anxious, Depressed (Occ depression. Denies thoughtsd of harming self or others), Disorientated (Off day by 2 days.) Patient History - Patient Medical History Hx Anemia: Yes (NO PILLS) Hx Asthma: No Hx Chronic Obstructive Pulmonary Disease (COPD): No Hx Cancer: No Hx Cardiac Disorders: No Hx Congestive Heart Failure: No Hx Hypertension: No Hx Hypercholesterolemia: No Hx Pacemaker: No HX Cerebrovascular Accident: No Hx Seizures: Yes (3 months ago) Hx Dementia: No Hx Diabetes: No Hx Gastrointestinal Disorders: No Hx Liver Disease: No Hx Genitourinary Disorders: No Hx Sexually Transmitted Disorders: No Hx Renal Disease (ESRD): No Hx Thyroid Disease: No Hx Human Immunodeficiency Virus (HIV): No (NEGATIVE HX) Hx Hepatitis C: No (negative) Hx Depression: Yes Hx Suicide Attempt: No Hx Bipolar Disorder: No Hx Schizophrenia: No - Patient Surgical History Past Surgical History: Yes Hx Neurologic Surgery: No Hx Cataract Extraction: No Hx Cardiac Surgery: No Hx Lung Surgery: No Hx Breast Surgery: No Hx Breast Biopsy: No Hx Abdominal Surgery: No Hx Appendectomy: No Hx Cholecystectomy: No Hx Genitourinary Surgery: No Hx Section: No Hx Orthopedic Surgery: Yes (BOTH UPPER ARM DUE TO IMDU ABCESS 12/2016) Hx Hysterectomy: No Other Surgical History: Fx nasal. Anesthesia Reaction: No - PPD History Previous Implant?: Yes Documented Results: Negative w/o proof Implanted On Prior [facility] Admission?: No Date: 05/02/17 Results: TBD PPD to be Administered?: Yes - Reproductive History Patient is a Female of Child Bearing Age (11 -55 yrs old): Yes Last Menstrual Period: 03/17/17 Patient : No - Smoking Cessation Smoking history: Never smoked Have you smoked in the past 12 months: No Hx Chewing Tobacco Use: No Initiated information on smoking cessation: No - Substance & Tx. History Hx Alcohol Use: No Hx Substance Use: Yes Substance Use Type: Cocaine, Heroin - Substances Abused Heroin Route: Injection Frequency: Daily Amount used: 20-30 BAGS Age of first use: 25 Date of Last Use: 08/04/18 Cocaine Route: Inhalation Frequency: Daily Amount used: 2-3 GRAMS Age of first use: 22 Date of Last Use: 08/04/18 Admission Physical Exam BHS - Vital Signs Vital Signs: Vital Signs - 24 hr 08/05/18 16:12 Temperature 97.7 F Pulse Rate 63 Respiratory 17 Rate Blood Pressure 114/66 - Physical General Appearance: Yes: Mild Distress, Tremorous, Irritable, Sweating (Facial moisture), Anxious HEENTM: Yes: EOMI (Jerking sensation of eyes on (L) and (R) lateral gaze), Hearing grossly Normal, Normal Voice, [place] (Pupils = 4 mm), Rhinorrhea Respiratory: Yes: Chest Non-Tender, Lungs Clear, Normal Breath Sounds, No Respiratory Distress Neck: Yes: No masses,lesions,Nodules, Supple Breast: Yes: Breast Exam Deferred Cardiology: Yes: Regular Rhythm, Regular Rate, S1, S2 Abdominal: Yes: Non Tender, Flat, Soft, Increased Bowel Sounds Genitourinary: Yes: Within Normal Limits Back: Yes: Normal Inspection Musculoskeletal: Yes: full range of Motion, Gait Steady Extremities: Yes: Normal Capillary Refill, Normal Range of Motion, Non-Tender, Tremors (Mild tremors of hands upon extension) Neurological: Yes: workday consultant II-XII NML intact (Jerking sensation of eyes on (L) and ( R) lateral gaze), Motor Strength 5/5, Normal Mood/Affect Integumentary: Yes: Normal Color, Dry, Warm, Track Ruby ((L) and (R) hip areas. ), Other (Slight erythema and 3" oval induration at (L) hip r/t IM drug injection. Non- tender and w/o increased warmth.) Lymphatic: Yes: Within Normal Limits - Diagnostic (1) Cocaine use disorder Current Visit: Yes Status: Chronic (2) Opioid dependence with withdrawal Current Visit: Yes Status: Acute (3) Nystagmus Current Visit: Yes Status: Acute (4) History of iron deficiency anemia Current Visit: Yes Status: Chronic (5) Induration at injection site Current Visit: Yes Status: Chronic Comment: Slight erythema and induration at (L) hip r/t Im self injection drug use. Non- tender, no increased warmth. Cleared for Admission [facility] - Detox or Rehab [facility] Level of Care: Medically Managed Detox Regimen/Protocol: Methadone [facility] Breath Alcohol Content Breath Alcohol Content: 0 Urine Pregancy Test - Result Urine Test Results: Negative- NO Line Present Urine Drug Screen - Results Drug Screen Negative: No Urine Drug Screen Results: THC-Marijuana, WONG-Cocaine, OPI-Opiates, BAR- Barbiturates, BZO-Benzodiazepines, OXY-Oxycodone, FEN-Fentanyl
[2018-08-05] MEDS ORDERED: MAGNESIUM CITRATE 300 ML BOTTLE PO PRN (19:06)
[2018-08-05] MEDS ORDERED: IBUPROFEN 400 MG TABLET (FP) PO PRN (19:06)
[2018-08-05] MEDS ORDERED: MAG HYDROX/AL HYDROX/SIMETH 30 ML UNIT-DOSE CUP PO PRN (19:06)
[2018-08-05] MEDS ORDERED: MAGNESIUM HYDROX 2400MG/30ML ORAL SUSPENSION 30 ML CUP PO PRN (19:06)
[2018-08-05] MEDS ORDERED: MENTHOL/PHENOL 1 EACH UD MM PRN (19:06)
[2018-08-05] MEDS ORDERED: LOPERAMIDE HCL 2 MG CAPSULE PO PRN (19:06)
[2018-08-05] MEDS ORDERED: ACETAMINOPHEN 325 MG TABLET (FP) PO PRN (19:06)
[2018-08-05] MEDS ORDERED: METHADONE HCL 10 MG TABLET (FOR DETOX USE ONLY) PO ONE ×2 (19:45→23:00)
[2018-08-05] MEDS: diazePAM 5 MG TABLET PO PRN (20:41)
[2018-08-05] MEDS: THIAMINE HCL 100 MG TABLET (FP) PO SCH (22:28)
[2018-08-05] MEDS: hydrOXYzine PAMOATE 25 MG CAPSULE (FP) PO PRN (22:28)
[2018-08-05] MEDS: MELATONIN 5 MG TABLETS PO PRN (22:29)
[2018-08-06] MEDS: diazePAM 5 MG TABLET PO PRN ×4 (08:41→21:47)
[2018-08-06 09:53] LABS: HEMATOCRIT 34.1 % (32.4-45.2); HEMOGLOBIN 10.9 GM/dL (10.7-15.3); MCH 27.9 pg (25.7-33.7); MCHC 32.1 g/dl (32.0-36.0); MEAN PLT VOLUME 8.9 fl (7.5-11.1); PLATELET COUNT 296 K/MM3 (134-434); RBC 3.92 M/mm3 (3.60-5.2); WHITE BLOOD COUNT 5.2 K/mm3 (4.0-10.0)
[2018-08-06] MEDS ORDERED: PRENATAL VITAMINS W/ FOLIC ACID TABLET (FP) PO SCH (10:00)
[2018-08-06] MEDS ORDERED: METHADONE HCL 10 MG TABLET (FOR DETOX USE ONLY) PO ONE (10:00)
[2018-08-06] MEDS ORDERED: DOCUSATE SODIUM 100 MG CAPSULE (FP) PO SCH (10:00)
[2018-08-06] MEDS ORDERED: FERROUS GLUCONATE 324 MG TAB (FP) PO SCH (10:00)
[2018-08-06 10:36] LABS: ALBUMIN 3.1 g/dl (3.4-5.0); ALK PHOS 80 U/L (45-117); ANION GAP 8 MMOL/L (8-16); BILIRUBIN,TOTAL 0.3 mg/dL (0.2-1); BLOOD UREA NITROGEN 14 mg/dL (7-18); CALCIUM 8.4 mg/dL (8.5-10.1); CHLORIDE 106 mmol/L (98-107); CO2 27 mmol/L (21-32); CREATININE 0.7 mg/dL (0.55-1.3); GLUCOSE,RANDOM 83 mg/dL (74-106); POTASSIUM 4.2 mmol/L (3.5-5.1); SGOT/AST 8 U/L (15-37); SGPT/ALT 9 U/L (13-61); SODIUM 142 mmol/L (136-145); TOT PROT 6.7 g/dl (6.4-8.2)
--- NOTE | 2018-08-06 11:20 | PN ---
BHS COWS - Scale Resting Pulse: 2= [place] 101-120 Sweatin=Flushed/Facial Moisture Restless Observation: 1= Difficult to Sit Still Pupil Size: 0= Normal to Room Light Bone or Joint Aches: 2= Severe Diffuse Aches Runny Nose/ Eye Tearin= Nasal Congestion GI Upset > 30mins: 0= None Tremor Observation of Outstretched Hands: 1= Tremor [place], Not Seen Yawning Observation: 1= 1-2x During Session Anxiety or Irritability: 1=Feels Anxious/Irritable Goose Flesh Skin: 3=Piloerection COWS Score: 14 BHS Progress Note (SOAP) Subjective: nausea agitation sweats mild shakes irritable anxiety interrupted sleep poor appetite Objective: 08/06/18 11:18 Vital Signs Temperature 97.9 F 08/06/18 09:24 Pulse Rate 112 H 08/06/18 09:24 Respiratory Rate 18 08/06/18 09:24 Blood Pressure 124/72 08/06/18 09:24 O2 Sat by Pulse Oximetry (%) Laboratory Tests 08/06/18 08/06/18 07:00 07:00 WBC 5.2 RBC 3.92 Hgb 10.9 Hct 34.1 MCV 87.0 MCH 27.9 MCHC 32.1 RDW 13.0 D Plt Count 296 MPV 8.9 Sodium 142 Potassium 4.2 Chloride 106 Carbon Dioxide 27 Anion Gap 8 BUN 14 Creatinine 0.7 Creat Clearance w eGFR > 60 Random Glucose 83 Calcium 8.4 L Total Bilirubin 0.3 AST 8 L ALT 9 L Alkaline Phosphatase 80 Total Protein 6.7 Albumin 3.1 L aaox3 ambulating no acute distress Assessment: 08/06/18 11:18 withdrawal sx Plan: continue detox increase fluids ensure plus 120ml po bid dietary garden consultant ordered
--- NOTE | 2018-08-06 17:04 | EKG ---
Test Reason : Blood Pressure : / mmHG Vent. Rate : 067 BPM Atrial Rate : 067 BPM P-R Int : 140 ms QRS Dur : 070 ms QT Int : 418 ms P-R-T Axes : 053 065 043 degrees QTc Int : 441 ms SINUS RHYTHM WITH PREMATURE ATRIAL COMPLEXES WITH ABERRANT CONDUCTION OTHERWISE NORMAL ECG Confirmed by MD KIKI, NAOMI ([id number]) on 08/06/2018 5:04:03 PM Referred By: Confirmed By:NAOMI SWANSON MD
[2018-08-06] MEDS: MELATONIN 5 MG TABLETS PO PRN (22:13)
[2018-08-06] MEDS: hydrOXYzine PAMOATE 25 MG CAPSULE (FP) PO PRN (22:13)
[2018-08-06] MEDS: THIAMINE HCL 100 MG TABLET (FP) PO SCH (22:13)
[2018-08-07] MEDS: diazePAM 5 MG TABLET PO PRN (06:13)
[2018-08-07 07:18] VITALS: BP 105/52; PULSE 93; TEMP 97.5
--- NOTE | 2018-08-07 09:22 | PN ---
S Progress Note Note: pt was irrate with the nurse for no apparent reason. Pt became threatening and wanting to slap the nurse in her face if her locker doesn't get opened now. pt became resistant to redirect, pt refused to signed document for her AMA. Security was called for this patient to get off the unit.
--- NOTE | 2018-08-07 09:27 | DS ---
[facility] Detox Discharge Summary Admission Date: 08/05/18 - History Present History: Opioid Dependence - Physical Exam Results Vital Signs: Vital Signs Temperature 97.5 F L 08/07/18 07:17 Pulse Rate 93 H 08/07/18 07:17 Respiratory Rate 18 08/07/18 07:17 Blood Pressure 105/52 L 08/07/18 07:17 O2 Sat by Pulse Oximetry (%) - Medication Discharge Medications: Ambulatory Orders NK [No Known Home Medication] 03/20/17 - Diagnosis (1) Opioid dependence with withdrawal Current Visit: Yes Status: Chronic (2) Cocaine use disorder Current Visit: Yes Status: Chronic (3) Nicotine dependence Current Visit: Yes Status: Chronic Qualifiers: Nicotine product type: cigarettes Substance use status: uncomplicated Qualified Code(s): F17.210 - Nicotine dependence, cigarettes, uncomplicated - AMA Did Patient Leave Against Medical Advice: Yes (refused to elaborate)
[2018-08-07] MEDS ORDERED: METHADONE HCL 5 MG TABLET (FOR DETOX USE ONLY) PO ONE (10:00)
[2018-08-08] MEDS ORDERED: METHADONE HCL 5 MG TABLET (FOR DETOX USE ONLY) PO ONE (10:00)
[2018-08-09] MEDS ORDERED: METHADONE HCL 10 MG TABLET (FOR DETOX USE ONLY) PO ONE (10:00)
[2018-08-10] MEDS ORDERED: METHADONE HCL 5 MG TABLET (FOR DETOX USE ONLY) PO ONE (06:00)
== END 2018-08-07 09:00 | disposition left against medical advice (07) | DRG 770 ==
LOC: YASAS 13:29 → Y6N 19:21
PROC: HZ2ZZZZ Detoxification Services for Substance Abuse Treatment (ICD-10-PCS; principal; 2018-08-05)
DX: F11.23 Opioid dependence with withdrawal (principal); F14.10 Cocaine abuse, uncomplicated; F17.210 Nicotine dependence, cigarettes, uncomplicated; D50.9 Iron deficiency anemia, unspecified; H55.00 Unspecified nystagmus; R23.4 Changes in skin texture; Z86.69 Personal history of other diseases of the nervous system and sense organs
CPT/HCPCS: 36415; 80053; 85027; 86593; 93005; 93010

== ENCOUNTER 2019-01-22 15:17 | Inpatient (IN) | payer OTHER | END 2019-01-24 14:27 | LOC: YASAS 15:17 → Y3N 01-24 12:31 ==

== ENCOUNTER 2019-01-25 09:18 | Inpatient (IN) | payer OTHER | END 2019-01-26 12:06 | disposition left against medical advice (07) | LOC: YASAS 09:18 → Y6N 09:53 ==

== ENCOUNTER 2019-03-07 15:42 | Inpatient (IN) | payer OTHER ==
[2019-03-07 16:03] VITALS: BMI 19.0
--- NOTE | 2019-03-07 18:40 | HP ---
COWS - Scale Resting Pulse: 1= [place] 81-100 Sweatin= Chills/Flushing Restless Observation: 1= Difficult to Sit Still Pupil Size: 2= Moderately Dilated Bone or Joint Aches: 1= Mild Discomfort Runny Nose/ Eye Tearin= Runny Nose/Eyes GI Upset > 30mins: 0= None Tremor Observation: 2= Slight Tremor Visible Yawning Observation: 1= 1-2x During Session Anxiety or Irritability: 2=Irritable/Anxious Goose Flesh Skin: 0=Smooth Skin COWS Score: 13 CIWA Score - Admission Criteria OASAS Guidelines: Admission for Medically Managed Detox: Requires at least one of the followin. CIWA greater than 12 2. Seizures within the past 24 hours 3. Delirium tremens within the past 24 hours 4. Hallucinations within the past 24 hours 5. Acute intervention needed for co occurring medical disorder 6. Acute intervention needed for co occurring psychiatric disorder 7. Severe withdrawal that cannot be handled at a lower level of care (continued vomiting, continued diarrhea, abnormal vital signs) requiring intravenous medication and/or fluids 8. Admission [facility] Chief Complaint: i want detox Allergies/Adverse Reactions: Allergies Allergy/AdvReac Type Severity Reaction Status Date / Time No Known Drug Allergies Allergy Verified 03/07/19 15:59 History of Present Illness: 2 y ago began using heroin currently iv 20-30 bags previously cocaine began age 21 daily use tx includes detox only - Ebola screening Have you traveled outside of the country in the last 21 days: No Have you had contact with anyone from an Ebola affected area: No - Review of Systems Constitutional: Unintentional Wgt. Loss EENT: reports: No Symptoms Reported Respiratory: reports: No Symptoms reported Cardiac: reports: No Symptoms Reported GI: reports: Abdominal cramping : reports: No Symptoms Reported Musculoskeletal: reports: Joint Pain Integumentary: reports: No Symptoms Reported Neuro: reports: No Symptoms reported Endocrine: reports: No Symptoms Reported Hematology: reports: No Symptoms Reported Psychiatric: reports: Anxious Patient History - Patient Medical History Hx Anemia: Yes (NO PILLS) Hx Asthma: No Hx Chronic Obstructive Pulmonary Disease (COPD): No Hx Cancer: No Hx Cardiac Disorders: No Hx Congestive Heart Failure: No Hx Hypertension: No Hx Hypercholesterolemia: No Hx Pacemaker: No HX Cerebrovascular Accident: No Hx Seizures: Yes (November 2018) Hx Dementia: No Hx Diabetes: No Hx Gastrointestinal Disorders: No Hx Liver Disease: No Hx Genitourinary Disorders: No Hx Sexually Transmitted Disorders: No Hx Renal Disease (ESRD): No Hx Thyroid Disease: No Hx Human Immunodeficiency Virus (HIV): No (NEGATIVE HX) Hx Hepatitis C: No (negative) Hx Depression: Yes Hx Suicide Attempt: No Hx Bipolar Disorder: Yes (hospitalized 01/24/19 [facility]) Hx Schizophrenia: No - Patient Surgical History Past Surgical History: Yes Hx Neurologic Surgery: No Hx Cataract Extraction: No Hx Cardiac Surgery: No Hx Lung Surgery: No Hx Breast Surgery: No Hx Breast Biopsy: No Hx Abdominal Surgery: No Hx Appendectomy: No Hx Cholecystectomy: No Hx Genitourinary Surgery: No Hx Section: No Hx Orthopedic Surgery: Yes (BOTH UPPER ARM DUE TO IVDU ABCESS 12/2016) Hx Hysterectomy: No Other Surgical History: Fx nasal. Anesthesia Reaction: No - PPD History Date: 01/24/19 Results: TBD - Reproductive History Patient is a Female of Child Bearing Age (11 -55 yrs old): Yes Last Menstrual Period: 12/29/18 - Smoking Cessation Smoking history: Current every day smoker Have you smoked in the past 12 months: Yes Aproximately how many cigarettes per day: 5 Hx Chewing Tobacco Use: No Initiated information on smoking cessation: Yes 'Breaking Loose' booklet given: 03/07/19 - Substances abused Heroin Substance route: Injection Frequency: Daily Amount used: 20 BAGS Age of first use: 26 Date of last use: 03/07/19 Cocaine Substance route: Inhalation Frequency: 3-6 times per week Amount used: $80 Age of first use: 21 Date of last use: 03/07/19 Crack Substance route: Smoking Frequency: Daily Amount used: $80 Age of first use: 28 Date of last use: 03/07/19 Family Disease History - Family Disease History Family Disease History: Other: Father (living - no contact), Mother (living) Admission Physical Exam BHS - Vital Signs Vital Signs: Vital Signs - 24 hr 03/07/19 15:53 Temperature 98.2 F Pulse Rate 85 Respiratory 17 Rate Blood Pressure 96/69 - Physical General Appearance: Yes: Disheveled HEENTM: Yes: EOMI Respiratory: Yes: Within Normal Limits Neck: Yes: Within Normal Limits Breast: Yes: Breast Exam Deferred Cardiology: Yes: S1, S2 Abdominal: Yes: Within Normal Limits Genitourinary: Yes: Within Normal Limits Back: Yes: Within Normal Limits Musculoskeletal: Yes: Within Normal Limits Extremities: Yes: Within Normal Limits Neurological: Yes: Within Normal Limits Integumentary: Yes: Track Ruby, Other - Addiitonal Findings: diffuse papular escar various stages of healing - Diagnostic (1) Opioid dependence with withdrawal Current Visit: Yes Status: Acute (2) Bipolar disorder Current Visit: No Status: Chronic Qualifiers: Active/Remission status: currently active Current bipolar episode type: mixed Current episode severity: moderate Qualified Code(s): F31.62 - Bipolar disorder, current episode mixed, moderate (3) Cocaine use disorder Current Visit: Yes Status: Chronic (4) Nicotine dependence Current Visit: Yes Status: Chronic Qualifiers: Nicotine product type: cigarettes Substance use status: uncomplicated Qualified Code(s): F17.210 - Nicotine dependence, cigarettes, uncomplicated Cleared for Admission S - Detox or Rehab [facility] Level of Care: Medically Supervised Detox Regimen/Protocol: Methadone Breathalyzer - Breathalyzer Breathalyzer: 0 Urine Drug Screen - Test Device Lot number: [id number] Expiration date: 10/31/20 - Control Is test valid?: Yes - Results Drug screen NEGATIVE: No Urine drug screen results: WONG-Cocaine, FEN-Fentanyl, MOP-Opiates Inpatient Rehab Admission - Rehab Decision to Admit Inpatient rehab admission?: No
[2019-03-07] MEDS ORDERED: MAGNESIUM CITRATE 300 ML BOTTLE PO PRN (18:44)
[2019-03-07] MEDS ORDERED: IBUPROFEN 400 MG TABLET (FP) PO PRN (18:44)
[2019-03-07] MEDS ORDERED: hydrOXYzine PAMOATE 25 MG CAPSULE (FP) PO PRN (18:44)
[2019-03-07] MEDS ORDERED: ACETAMINOPHEN 325 MG TABLET (FP) PO PRN ×2 (18:44)
[2019-03-07] MEDS ORDERED: MAGNESIUM HYDROX 2400MG/30ML ORAL SUSPENSION 30 ML CUP PO PRN (18:44)
[2019-03-07] MEDS ORDERED: MAG HYDROX/AL HYDROX/SIMETH 30 ML UNIT-DOSE CUP PO PRN (18:44)
[2019-03-07] MEDS ORDERED: MENTHOL/PHENOL 1 EACH UD MM PRN (18:44)
[2019-03-07] MEDS ORDERED: METHOCARBAMOL 500 MG TABLET PO PRN (18:44)
[2019-03-07] MEDS ORDERED: MELATONIN 5 MG TABLETS PO PRN (18:44)
[2019-03-07] MEDS ORDERED: BISMUTH SUBSALICYLATE 524 MG/30 ML UD PO PRN (18:44)
[2019-03-07] MEDS ORDERED: cloNIDine HCL 0.1 MG TABLET PO PRN (18:44)
[2019-03-07] MEDS ORDERED: METHADONE HCL 10 MG TABLET (FOR DETOX USE ONLY) PO ONE (18:44)
[2019-03-07] MEDS: diazePAM 5 MG TABLET PO PRN (20:20)
[2019-03-07] MEDS ORDERED: THIAMINE HCL 100 MG TABLET (FP) PO SCH (22:00)
[2019-03-08] MEDS: diazePAM 5 MG TABLET PO PRN ×2 (05:55→11:05)
[2019-03-08] MEDS ORDERED: METHADONE HCL 5 MG TABLET (FOR DETOX USE ONLY) PO ONE (10:00)
[2019-03-08] MEDS ORDERED: PRENATAL VITAMINS W/ FOLIC ACID TABLET (FP) PO SCH (10:00)
[2019-03-08 10:57] VITALS: BP 98/68; PULSE 92; TEMP 99
[2019-03-08 11:10] LABS: ALBUMIN 3.4 g/dl (3.4-5.0); BILIRUBIN,TOTAL 0.2 mg/dL (0.2-1); CREATININE 0.7 mg/dL (0.55-1.3); POTASSIUM 4.4 mmol/L (3.5-5.1); TOT PROT 6.6 g/dl (6.4-8.2)
[2019-03-08 11:19] LABS: HEMATOCRIT 37.6 % (32.4-45.2); HEMOGLOBIN 12.5 GM/dL (10.7-15.3); MCH 30.2 pg (25.7-33.7); MCHC 33.2 g/dl (32.0-36.0); MEAN CELL VOLUME 90.9 fl (80-96); MEAN PLT VOLUME 9.6 fl (7.5-11.1); RBC 4.14 M/mm3 (3.60-5.2); RDW 12.1 % (11.6-15.6); WHITE BLOOD COUNT 4.7 K/mm3 (4.0-10.0)
[2019-03-08 12:21] LABS: PLATELET COUNT 294 K/MM3 (134-434)
--- NOTE | 2019-03-08 15:28 | DS ---
[facility] Detox Discharge Summary Admission Date: 03/07/19 Discharge Date: 03/08/19 (Left AMA) - History Present History: Cocaine Dependence, Opioid Dependence Additional Comments: Pt left AMA. Did not complete her detox protocol. As per RN pt wants to leave and does not want to continue with her detox protocol and an attempt to let her stay and complete her detox protocol failed. Pt did not wait to talk to the provider. When provide met with her this morning pt c/o anxiety, irritability, muscle aches, nausea, and sweats. Pt is alert and oriented x3 and in no respiratory distress when she was seen during morning rounds. COWS - Scale Resting Pulse: 1= [place] 81-100 Sweatin= Chills/Flushing Restless Observation: 1= Difficult to Sit Still Pupil Size: 2= Moderately Dilated Bone or Joint Aches: 1= Mild Discomfort Runny Nose/ Eye Tearin= Runny Nose/Eyes GI Upset > 30mins: 0= None Tremor Observation: 2= Slight Tremor Visible Yawning Observation: 1= 1-2x During Session Anxiety or Irritability: 2=Irritable/Anxious Goose Flesh Skin: 0=Smooth Skin COWS Score: 13 Pertinent Past History: h/o cocaine and opioid use disorder. - Physical Exam Results Vital Signs: Vital Signs Temperature 99 F 03/08/19 10:57 Pulse Rate 92 H 03/08/19 10:57 Respiratory Rate 16 03/08/19 10:57 Blood Pressure 98/68 03/08/19 10:57 O2 Sat by Pulse Oximetry (%) Vital Signs 03/08/19 03/08/19 08:07 10:57 Temperature 98.2 F 99 F Pulse Rate 79 92 H Respiratory 16 16 Rate Blood Pressure 100/60 98/68 Lab Results WBC 4.7 K/mm3 (4.0-10.0) 03/08/19 08:00 RBC 4.14 M/mm3 (3.60-5.2) 03/08/19 08:00 Hgb 12.5 GM/dL (10.7-15.3) 03/08/19 08:00 Hct 37.6 % (32.4-45.2) 03/08/19 08:00 MCV 90.9 fl (80-96) 03/08/19 08:00 MCHC 33.2 g/dl (32.0-36.0) 03/08/19 08:00 RDW 12.1 % (11.6-15.6) 03/08/19 08:00 Plt Count 294 K/MM3 (134-434) D 03/08/19 08:00 Sodium 143 mmol/L (136-145) 03/08/19 08:00 Potassium 4.4 mmol/L (3.5-5.1) 03/08/19 08:00 Chloride 111 mmol/L (98-107) H 03/08/19 08:00 Carbon Dioxide 28 mmol/L (21-32) 03/08/19 08:00 Anion Gap 4 MMOL/L (8-16) L 03/08/19 08:00 BUN 11.0 mg/dL (7-18) 03/08/19 08:00 Creatinine 0.7 mg/dL (0.55-1.3) 03/08/19 08:00 Random Glucose 97 mg/dL (74-106) 03/08/19 08:00 Calcium 9.0 mg/dL (8.5-10.1) 03/08/19 08:00 Labs noted. Pertinent Admission Physical Exam Findings: withdrawal symptoms. - Treatment Hospital Course: Detox Protocol Followed - Medication Discharge Medications: Ambulatory Orders NK [No Known Home Medication] 01/22/19 - Diagnosis (1) Opioid dependence with withdrawal Status: Acute (2) Cocaine use disorder Status: Chronic (3) History of iron deficiency anemia Status: Chronic (4) Nicotine dependence Status: Chronic Qualifiers: Nicotine product type: cigarettes Substance use status: uncomplicated Qualified Code(s): F17.210 - Nicotine dependence, cigarettes, uncomplicated (5) Seizure disorder Status: Chronic - AMA Did Patient Leave Against Medical Advice: Yes
[2019-03-09] MEDS ORDERED: METHADONE HCL 10 MG TABLET (FOR DETOX USE ONLY) PO ONE (10:00)
[2019-03-10] MEDS ORDERED: METHADONE HCL 5 MG TABLET (FOR DETOX USE ONLY) PO ONE (06:00)
== END 2019-03-08 12:20 | disposition left against medical advice (07) | DRG 770 ==
LOC: YASAS 15:42 → Y6N 19:11
PROVIDERS: ADMIT Surgery; ATTEND Surgery
PROC: HZ2ZZZZ Detoxification Services for Substance Abuse Treatment (ICD-10-PCS; principal; 2019-03-07)
DX: F11.23 Opioid dependence with withdrawal (principal); F14.20 Cocaine dependence, uncomplicated; F17.210 Nicotine dependence, cigarettes, uncomplicated; F31.9 Bipolar disorder, unspecified; D50.9 Iron deficiency anemia, unspecified; G40.909 Epilepsy, unspecified, not intractable, without status epilepticus
CPT/HCPCS: 36415; 80053; 81025; 85027; 86593

== ENCOUNTER 2019-04-18 18:01 | Inpatient (IN) | payer OTHER ==
[2019-04-18 18:49] VITALS: BMI 18.1
--- NOTE | 2019-04-18 19:17 | HP ---
COWS - Scale Resting Pulse: 1= [place] 81-100 Sweatin=Flushed/Facial Moisture Restless Observation: 1= Difficult to Sit Still Pupil Size: 2= Moderately Dilated (Pup) Bone or Joint Aches: 0= None Runny Nose/ Eye Tearin= Runny Nose/Eyes GI Upset > 30mins: 0= None Tremor Observation: 2= Slight Tremor Visible Yawning Observation: 1= 1-2x During Session Anxiety or Irritability: 1=Feels Anxious/Irritable Goose Flesh Skin: 0=Smooth Skin COWS Score: 12 CIWA Score - Admission Criteria OASAS Guidelines: Admission for Medically Managed Detox: Requires at least one of the followin. CIWA greater than 12 2. Seizures within the past 24 hours 3. Delirium tremens within the past 24 hours 4. Hallucinations within the past 24 hours 5. Acute intervention needed for co occurring medical disorder 6. Acute intervention needed for co occurring psychiatric disorder 7. Severe withdrawal that cannot be handled at a lower level of care (continued vomiting, continued diarrhea, abnormal vital signs) requiring intravenous medication and/or fluids 8. Admission ROS [facility] - [facility] Chief Complaint: Having heroin withdrawal. I'm feeling sick. Allergies/Adverse Reactions: Allergies Allergy/AdvReac Type Severity Reaction Status Date / Time No Known Drug Allergies Allergy Verified 04/18/19 18:37 History of Present Illness: 28 yo states I'm having heroin withdrawal and seeking detox. Last detox @ [facility] in January 2019. Utox: + WONG/FEN/MOP HCG: Neg Heroin use since age 25. Injects drugs states IM into thigh. States never shares needles or works. Currently using 30-40 bags/day. States tried Suboxone but it felt "weird" . States hasn't taken for about 3 weeks. Cocaine use since age 21. Crack use began at age 28. Currently using over $100 /day. Denies alcohol use. Nicotine use - stopped 2 months ago. Hx blackouts - 2018. States overdoses 01/21/19 and given Narcan by a friend. Does not have a Narcan Kit @ home. PMHx. Abnormal EKG. Denies other significant PMH/PSH Abn EKG on exam Jan, 2019 @ [facility]. MHHx: Anxious. Insomnia. Slight depression. Denies thoughts of harming self or others. Patient Name: Jenn Baldwin Date: 1990 [address]: [address] [place] [id number] Sex: Female Rx Written Rx Dispensed Drug Quantity Days Supply Prescriber Name 02/21/2019 03/04/2019 buprenorphine-naloxone 8-2 mg sl film 42 21 Devaughn Segala 02/12/2019 02/13/2019 buprenorphine-naloxone 8-2 mg sl film 18 9 Luzma Tru 02/05/2019 02/06/2019 buprenorphine-naloxone 8-2 mg sl film 14 7 Tru Segal Search Terms: Jenn Baldwin, 1990 Search Date: 04/18/2019 07:13:28 PM States Searched: [place], [place], [place], [place], [place], [place], [place] The Drug Utilization Report below displays the controlled substance prescriptions, if any, that were dispensed in the indicated state(s). The information displayed on this report is compiled from requests submitted to other states' PMPs, and accurately reflects the information as returned by them. Blank mcdowell indicate data not provided by other state. This report was requested by: Iris Trejo | Reference #: [id number] Exam Limitations: No Limitations - Ebola screening Have you traveled outside of the country in the last 21 days: No (N) Have you had contact with anyone from an Ebola affected area: No Have you been sick,other than usual withdrawal symptoms: No (Denies recent exposure to measles) Do you have a fever: No - Review of Systems Constitutional: Chills, Diaphoresis, Changes in sleep (Difficulty falling and staying asleep) EENT: reports: No Symptoms Reported, Tearing Respiratory: reports: No Symptoms reported Cardiac: reports: No Symptoms Reported GI: reports: No Symptoms Reported : reports: No Symptoms Reported Musculoskeletal: reports: No Symptoms Reported Integumentary: reports: Other (Scrapes on back r/t fall 2-3 days ago.) Neuro: reports: Tremors (Shivers r/t withdrawal) Endocrine: reports: No Symptoms Reported Hematology: reports: No Symptoms Reported Psychiatric: reports: Orientated x3, Agitated, Anxious, Depressed ( Denies thoughts of harming self or others.) Patient History - Patient Medical History Hx Anemia: Yes (NO PILLS) Hx Asthma: No Hx Chronic Obstructive Pulmonary Disease (COPD): No Hx Cancer: No Hx Cardiac Disorders: No Hx Congestive Heart Failure: No Hx Hypertension: No Hx Hypercholesterolemia: No Hx Pacemaker: No HX Cerebrovascular Accident: No Hx Seizures: No Hx Dementia: No Hx Diabetes: No Hx Gastrointestinal Disorders: No Hx Liver Disease: No Hx Genitourinary Disorders: No Hx Sexually Transmitted Disorders: No Hx Renal Disease (ESRD): No Hx Thyroid Disease: No Hx Human Immunodeficiency Virus (HIV): No (NEGATIVE HX) Hx Hepatitis C: No (negative) Hx Depression: Yes Hx Suicide Attempt: No Hx Bipolar Disorder: Yes (hospitalized 01/24/19 [facility]) Hx Schizophrenia: No - Patient Surgical History Past Surgical History: Yes Hx Neurologic Surgery: No Hx Cataract Extraction: No Hx Cardiac Surgery: No Hx Lung Surgery: No Hx Breast Surgery: No Hx Breast Biopsy: No Hx Abdominal Surgery: No Hx Appendectomy: No Hx Cholecystectomy: No Hx Genitourinary Surgery: No Hx Section: No Hx Orthopedic Surgery: Yes (BOTH UPPER ARM DUE TO IVDU ABCESS 12/2016) Hx Hysterectomy: No Other Surgical History: Fx nasal. Anesthesia Reaction: No - PPD History Previous Implant?: Yes Documented Results: Negative w/proof Implanted On Prior [facility] Admission?: Yes Date: 01/24/19 Results: TBD PPD to be Administered?: No - Reproductive History Patient is a Female of Child Bearing Age (11 -55 yrs old): Yes Last Menstrual Period: 12/29/18 (Hx abnormal menses) Patient : No - Smoking Cessation Smoking history: Former smoker (Stopped smoking 2 months.) Have you smoked in the past 12 months: Yes Hx Chewing Tobacco Use: No Initiated information on smoking cessation: Yes 'Breaking Loose' booklet given: 04/18/19 - Substance & Tx. History Hx Alcohol Use: No Hx Substance Use: Yes Substance Use Type: Cocaine, Heroin Hx Substance Use Treatment: Yes (detox) - Substances abused Heroin Substance route: Injection Frequency: Daily Amount used: 30 to 40 Age of first use: 26 Date of last use: 04/18/19 Cocaine Substance route: Inhalation Frequency: Daily Amount used: 100 dollars Age of first use: 21 Date of last use: 04/18/19 Crack Substance route: Smoking Frequency: Daily Amount used: 30 to 40 bags Age of first use: 28 Date of last use: 04/18/19 Family Disease History - Family Disease History Family Disease History: Other: Father (living - no contact), Mother (living) Admission Physical Exam [facility] - Vital Signs Vital Signs: Vital Signs - 24 hr 04/18/19 18:39 Temperature 98.7 F Pulse Rate 83 Respiratory 16 Rate Blood Pressure 94/57 L - Physical General Appearance: Yes: Mild Distress, Thin, Tremorous (Slight tremors of hands ), Sweating (Increased facial mositure), Anxious HEENTM: Yes: EOMI (Jerking movement of eyes upon lateral gaze), Hearing grossly Normal, Normocephalic, Normal Voice, SALVADOR (Pupils = 4 mm), Pharynx Normal Respiratory: Yes: Lungs Clear, Normal Breath Sounds, No Respiratory Distress Neck: Yes: No masses,lesions,Nodules, Supple Breast: Yes: Breast Exam Deferred Cardiology: Yes: Regular Rate, S1, S2, Irregular Abdominal: Yes: Non Tender, Flat, Soft, Increased Bowel Sounds Genitourinary: Yes: Within Normal Limits Back: Yes: Normal Inspection Musculoskeletal: Yes: full range of Motion, Gait Steady Extremities: Yes: Normal Capillary Refill, Normal Range of Motion, Non-Tender, Tremors (Tremors of hands) 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 (3) Nystagmus Current Visit: Yes Status: Chronic (4) Opioid dependence with withdrawal Current Visit: Yes Status: Acute (5) Cocaine use disorder Current Visit: Yes Status: Chronic (6) Nicotine dependence in remission Current Visit: Yes Status: Chronic Qualifiers: Nicotine product type: cigarettes Qualified Code(s): F17.211 - Nicotine dependence, cigarettes, in remission Comment: x 2 months Cleared for Admission [facility] - Detox or Rehab [facility] Level of Care: Medically Managed Detox Regimen/Protocol: Methadone Claeared for Rehab Admission: No Breathalyzer - Breathalyzer Breathalyzer: 0 Urine Drug Screen - Test Device Lot number: [id number] Expiration date: 10/31/20 - Control Is test valid?: Yes - Results Drug screen NEGATIVE: No Urine drug screen results: WONG-Cocaine, FEN-Fentanyl, MOP-Opiates Inpatient Rehab Admission - Rehab Decision to Admit Inpatient rehab admission?: No
[2019-04-18] MEDS ORDERED: MAGNESIUM HYDROX 2400MG/30ML ORAL SUSPENSION 30 ML CUP PO PRN (19:53)
[2019-04-18] MEDS ORDERED: MENTHOL/PHENOL 1 EACH UD MM PRN (19:53)
[2019-04-18] MEDS ORDERED: METHOCARBAMOL 500 MG TABLET PO PRN (19:53)
[2019-04-18] MEDS ORDERED: METHADONE HCL 10 MG TABLET (FOR DETOX USE ONLY) PO ONE (19:53)
[2019-04-18] MEDS ORDERED: MELATONIN 5 MG TABLETS PO PRN (19:53)
[2019-04-18] MEDS ORDERED: ACETAMINOPHEN 325 MG TABLET (FP) PO PRN ×2 (19:53)
[2019-04-18] MEDS ORDERED: BISMUTH SUBSALICYLATE 524 MG/30 ML UD PO PRN (19:53)
[2019-04-18] MEDS ORDERED: IBUPROFEN 400 MG TABLET (FP) PO PRN (19:53)
[2019-04-18] MEDS ORDERED: PROCHLORPERAZINE MALEATE 5 MG TABLET PO PRN (19:53)
[2019-04-18] MEDS ORDERED: MAG HYDROX/AL HYDROX/SIMETH 30 ML UNIT-DOSE CUP PO PRN (19:53)
[2019-04-18] MEDS ORDERED: MAGNESIUM CITRATE 300 ML BOTTLE PO PRN (19:53)
[2019-04-18] MEDS ORDERED: cloNIDine HCL 0.1 MG TABLET PO PRN (19:53)
[2019-04-18] MEDS: clonazePAM 0.5 MG TABLET PO PRN (20:36)
[2019-04-18] MEDS: THIAMINE HCL 100 MG TABLET (FP) PO SCH (22:38)
[2019-04-18] MEDS: BACITRACIN 0.9 GM PACKET TP SCH (22:39)
[2019-04-18] MEDS ORDERED: traZODone HCL 100 MG TABLET (FP) PO ONE (23:00)
[2019-04-19] MEDS: clonazePAM 0.5 MG TABLET PO PRN ×3 (06:13→22:25)
[2019-04-19] MEDS ORDERED: METHADONE HCL 5 MG TABLET (FOR DETOX USE ONLY) ONE (09:49)
[2019-04-19] MEDS ORDERED: METHADONE HCL 10 MG TABLET (FOR DETOX USE ONLY) ONE (09:49)
[2019-04-19] MEDS ORDERED: PRENATAL VITAMINS W/ FOLIC ACID TABLET (FP) PO SCH (10:00)
[2019-04-19] MEDS ORDERED: METHADONE (DETOX) 20 MG, METHADONE (DETOX) 5 MG PO ONE (10:00)
[2019-04-19 10:46] LABS: HEMATOCRIT 32.1 % (32.4-45.2); HEMOGLOBIN 10.7 GM/dL (10.7-15.3); MCH 30.1 pg (25.7-33.7); MCHC 33.4 g/dl (32.0-36.0); MEAN CELL VOLUME 90.1 fl (80-96); MEAN PLT VOLUME 9.1 fl (7.5-11.1); PLATELET COUNT 322 K/MM3 (134-434); RBC 3.56 M/mm3 (3.60-5.2); RDW 12.2 % (11.6-15.6)
[2019-04-19 10:53] LABS: ALBUMIN 3.2 g/dl (3.4-5.0); BILIRUBIN,TOTAL 0.4 mg/dL (0.2-1); BLOOD UREA NITROGEN 11.1 mg/dL (7-18); CALCIUM 8.7 mg/dL (8.5-10.1); CREATININE 0.8 mg/dL (0.55-1.3); POTASSIUM 4.2 mmol/L (3.5-5.1); TOT PROT 6.8 g/dl (6.4-8.2)
[2019-04-19] MEDS: BACITRACIN 0.9 GM PACKET TP SCH ×2 (11:53→22:57)
--- NOTE | 2019-04-19 12:40 | PN ---
S COWS - Scale Resting Pulse: 1= [place] 81-100 Sweatin= Beads of Sweat on Face Restless Observation: 1= Difficult to Sit Still Pupil Size: 0= Normal to Room Light Bone or Joint Aches: 2= Severe Diffuse Aches Runny Nose/ Eye Tearin= None GI Upset > 30mins: 0= None Tremor Observation of Outstretched Hands: 2= Slight Tremor Visible Yawning Observation: 1= 1-2x During Session Anxiety or Irritability: 2=Irritable/Anxious Goose Flesh Skin: 0=Smooth Skin COWS Score: 12 S Progress Note (SOAP) Subjective: c/o mild shakes, anxiety, irritability, tiredness, and sweats. Objective: 04/19/19 12:40 Vital Signs 04/19/19 04/19/19 07:50 09:51 Temperature 100.2 F H 97.9 F Pulse Rate 106 H 97 H Respiratory 20 18 Rate Blood Pressure 129/71 100/64 Lab Results WBC 7.0 K/mm3 (4.0-10.0) 04/19/19 07:30 RBC 3.56 M/mm3 (3.60-5.2) L 04/19/19 07:30 Hgb 10.7 GM/dL (10.7-15.3) 04/19/19 07:30 Hct 32.1 % (32.4-45.2) L 04/19/19 07:30 MCV 90.1 fl (80-96) 04/19/19 07:30 MCHC 33.4 g/dl (32.0-36.0) 04/19/19 07:30 RDW 12.2 % (11.6-15.6) 04/19/19 07:30 Plt Count 322 K/MM3 (134-434) 04/19/19 07:30 Sodium 141 mmol/L (136-145) 04/19/19 07:30 Potassium 4.2 mmol/L (3.5-5.1) 04/19/19 07:30 Chloride 106 mmol/L (98-107) 04/19/19 07:30 Carbon Dioxide 29 mmol/L (21-32) 04/19/19 07:30 Anion Gap 5 MMOL/L (8-16) L 04/19/19 07:30 BUN 11.1 mg/dL (7-18) 04/19/19 07:30 Creatinine 0.8 mg/dL (0.55-1.3) 04/19/19 07:30 Random Glucose 100 mg/dL (74-106) 04/19/19 07:30 Calcium 8.7 mg/dL (8.5-10.1) 04/19/19 07:30 Labs noted. Assessment: 04/19/19 12:40 AOX3, in no acute distress. Full ROM, ambulating in the unit. Withdrawal symptoms. Plan: continue detox.
--- NOTE | 2019-04-19 16:14 | CONSULT ---
[facility] Psychiatric Consult - Data Date of interview: 04/19/19 Admission source: [facility] Identifying data: Approached at bedside for psychiatric evaluation. Ms Baldwin declines. Nursing staff is made aware.
[2019-04-19] MEDS: THIAMINE HCL 100 MG TABLET (FP) PO SCH (22:25)
[2019-04-20] MEDS: clonazePAM 0.5 MG TABLET PO PRN (03:37)
[2019-04-20 07:13] VITALS: BP 100/57; PULSE 63; TEMP 97.2
--- NOTE | 2019-04-20 08:05 | DS ---
[facility] Detox Discharge Summary Admission Date: 04/18/19 Discharge Date: 04/20/19 - History Additional Comments: Patient is leaving against medical advice. Patient wanted the nurse to call her home. She was told by the the nurse that the socially responsible investment adviser comes in at 8.00AM and will enable her make the necessary contact with her family. Patient states that she just wants to fgo home now. She alert and oriented to person, place and time and medically stable at this time.The nurse reports that she signed the AMA paper and left Pertinent Past History: Anemia, depression, Bipolar disorder and heroin dependence - Physical Exam Results Vital Signs: Vital Signs Temperature 97.2 F L 04/19/19 22:00 Pulse Rate 63 04/19/19 22:00 Respiratory Rate 18 04/20/19 00:30 Blood Pressure 100/57 L 04/19/19 22:00 O2 Sat by Pulse Oximetry (%) Laboratory Last Values WBC 7.0 K/mm3 (4.0-10.0) 04/19/19 07:30 RBC 3.56 M/mm3 (3.60-5.2) L 04/19/19 07:30 Hgb 10.7 GM/dL (10.7-15.3) 04/19/19 07:30 Hct 32.1 % (32.4-45.2) L 04/19/19 07:30 MCV 90.1 fl (80-96) 04/19/19 07:30 MCH 30.1 pg (25.7-33.7) 04/19/19 07:30 MCHC 33.4 g/dl (32.0-36.0) 04/19/19 07:30 RDW 12.2 % (11.6-15.6) 04/19/19 07:30 Plt Count 322 K/MM3 (134-434) 04/19/19 07:30 MPV 9.1 fl (7.5-11.1) 04/19/19 07:30 Sodium 141 mmol/L (136-145) 04/19/19 07:30 Potassium 4.2 mmol/L (3.5-5.1) 04/19/19 07:30 Chloride 106 mmol/L (98-107) 04/19/19 07:30 Carbon Dioxide 29 mmol/L (21-32) 04/19/19 07:30 Anion Gap 5 MMOL/L (8-16) L 04/19/19 07:30 BUN 11.1 mg/dL (7-18) 04/19/19 07:30 Creatinine 0.8 mg/dL (0.55-1.3) 04/19/19 07:30 Est GFR (CKD-EPI)AfAm 116.28 04/19/19 07:30 Est GFR (CKD-EPI)NonAf 100.33 04/19/19 07:30 Random Glucose 100 mg/dL (74-106) 04/19/19 07:30 Calcium 8.7 mg/dL (8.5-10.1) 04/19/19 07:30 Total Bilirubin 0.4 mg/dL (0.2-1) 04/19/19 07:30 AST 18 U/L (15-37) 04/19/19 07:30 ALT 15 U/L (13-61) 04/19/19 07:30 Alkaline Phosphatase 71 U/L (45-117) 04/19/19 07:30 Total Protein 6.8 g/dl (6.4-8.2) 04/19/19 07:30 Albumin 3.2 g/dl (3.4-5.0) L 04/19/19 07:30 Pertinent Admission Physical Exam Findings: Withdrawal symptoms - Medication Discharge Medications: Ambulatory Orders NK [No Known Home Medication] 01/22/19 - Diagnosis (1) Opioid dependence with withdrawal Current Visit: Yes Status: Acute (2) Nicotine dependence in remission Current Visit: Yes Status: Chronic Qualifiers: Nicotine product type: cigarettes Qualified Code(s): F17.211 - Nicotine dependence, cigarettes, in remission (3) Nystagmus Current Visit: Yes Status: Chronic - AMA Did Patient Leave Against Medical Advice: Yes
[2019-04-20] MEDS ORDERED: METHADONE HCL 10 MG TABLET (FOR DETOX USE ONLY) PO ONE (10:00)
--- NOTE | 2019-04-20 11:39 | EKG ---
Test Reason : Blood Pressure : / mmHG Vent. Rate : 068 BPM Atrial Rate : 068 BPM P-R Int : 138 ms QRS Dur : 084 ms QT Int : 404 ms P-R-T Axes : 050 065 050 degrees QTc Int : 429 ms NORMAL SINUS RHYTHM WITH SINUS ARRHYTHMIA NORMAL ECG WHEN COMPARED WITH ECG OF 22-JAN-2019 20:51, T WAVE AMPLITUDE HAS DECREASED IN ANTEROLATERAL LEADS Confirmed by BRENT BLANCO, RICH ([id number]) on 04/20/2019 11:38:59 AM Referred By: Confirmed By:RICH KENNEDY MD
[2019-04-21] MEDS ORDERED: METHADONE (DETOX) 10 MG, METHADONE (DETOX) 5 MG PO ONE (10:00)
[2019-04-22] MEDS ORDERED: METHADONE HCL 10 MG TABLET (FOR DETOX USE ONLY) PO ONE (10:00)
[2019-04-23] MEDS ORDERED: METHADONE HCL 5 MG TABLET (FOR DETOX USE ONLY) PO ONE (06:00)
== END 2019-04-20 07:30 | disposition left against medical advice (07) | DRG 770 ==
LOC: YASAS 18:01 → Y6N 19:45
PROVIDERS: ADMIT Surgery; ATTEND Surgery
PROC: HZ2ZZZZ Detoxification Services for Substance Abuse Treatment (ICD-10-PCS; principal; 2019-04-18)
DX: F11.23 Opioid dependence with withdrawal (principal); F14.20 Cocaine dependence, uncomplicated; F17.211 Nicotine dependence, cigarettes, in remission; H55.00 Unspecified nystagmus; I49.9 Cardiac arrhythmia, unspecified; S30.81 Abrasion of abdomen, lower back, pelvis and external genitals; X58.XXXS Exposure to other specified factors, sequela
CPT/HCPCS: 36415; 80053; 81025; 85027; 86593; 93005; 93010

== ENCOUNTER 2019-06-03 15:27 | Inpatient (IN) | payer OTHER ==
[2019-06-03 16:58] VITALS: BMI 18.0
--- NOTE | 2019-06-03 17:59 | HP ---
"COWS - Scale Resting Pulse: 1= [place] 81-100 Sweatin=Flushed/Facial Moisture Restless Observation: 3= Extraneous Movement Pupil Size: 2= Moderately Dilated (Pupils = 6 mm) Bone or Joint Aches: 0= None Runny Nose/ Eye Tearin= Nasal Congestion GI Upset > 30mins: 1= Stomach Cramp Tremor Observation: 4= Gross Tremor/Twitching Yawning Observation: 1= 1-2x During Session Anxiety or Irritability: 2=Irritable/Anxious Goose Flesh Skin: 0=Smooth Skin COWS Score: 17 CIWA Score - Admission Criteria OASAS Guidelines: Admission for Medically Managed Detox: Requires at least one of the followin. CIWA greater than 12 2. Seizures within the past 24 hours 3. Delirium tremens within the past 24 hours 4. Hallucinations within the past 24 hours 5. Acute intervention needed for co occurring medical disorder 6. Acute intervention needed for co occurring psychiatric disorder 7. Severe withdrawal that cannot be handled at a lower level of care (continued vomiting, continued diarrhea, abnormal vital signs) requiring intravenous medication and/or fluids 8. Admitting History and Physical - Past Medical History ...LMP: 12/29/18 (Hx abnormal menses) - Smoking History Smoking history: Former smoker (Stopped smoking 2 months.) Have you smoked in the past 12 months: Yes Aproximately how many cigarettes per day: 5 - Alcohol/Substance Use Hx Alcohol Use: No Admission ROS [facility] - HPI Chief Complaint: Having heroin withdrawal. I want to try to complete detox and go to rehab this time. Allergies/Adverse Reactions: Allergies Allergy/AdvReac Type Severity Reaction Status Date / Time No Known Drug Allergies Allergy Verified 06/03/19 16:50 History of Present Illness: 28 yo presents w/ heroin/opioid withdrawal and seeking detox. [facility] Past's last f5 visits patient has left AMA. Last RPR: 04/19/19: Non-reactive. Utox: + WONG/FEN/MOP HCG: Neg BELLE: 0.0 Heroin use since age 25. Currently using 35-40 bags/day. Injects drugs IM into thigh. States never shares needles or works. Cocaine use since age 21. Crack use began at age 28. Currently using crack at about 15 bags/day. Denies alcohol use. Nicotine use - stopped 4 months ago. Hx blackouts - 2018. States overdoses 01/21/19. States has a Narcan Kit. PMHx. Abnormal EKG. Denies other significant PMH/PSH EKG on exam 04/18/19: Reviewed. MHHx: Anxious. Insomnia. Slight depression. Denies thoughts of harming self or others. Patient Name: Jenn Maguire Date: 1990 Address: [address] [place] [address] Sex: Female Rx Written Rx Dispensed Drug Quantity Days Supply Prescriber Name 02/21/2019 03/04/2019 buprenorphine-naloxone 8-2 mg sl film 42 21 Tru Segal 02/12/2019 02/13/2019 buprenorphine-naloxone 8-2 mg sl film 18 9 Tru Segal 02/05/2019 02/06/2019 buprenorphine-naloxone 8-2 mg sl film 14 7 Tru Segal Search Terms: JENN MAGUIRE, 1990 Search Date: 06/03/2019 06:03:18 PM States Searched: [place], [place], [place], [place], [place], [place], [place] The Drug Utilization Report below displays the controlled substance prescriptions, if any, that were dispensed in the indicated state(s). The information displayed on this report is compiled from requests submitted to other states' PMPs, and accurately reflects the information as returned by them. Blank mcdowell indicate data not provided by other state. This report was requested by: Iris Trejo | Reference #: [id number] There are no results for the search terms that you entered. Exam Limitations: No Limitations - Ebola screening Have you traveled outside of the country in the last 21 days: No Have you had contact with anyone from an Ebola affected area: No Have you been sick,other than usual withdrawal symptoms: No Do you have a fever: No - Review of Systems Constitutional: Chills, Diaphoresis, Changes in sleep (Difficulty staying asleep.), Unintentional Wgt. Loss (r/t not eating while using drugs) EENT: reports: No Symptoms Reported Respiratory: reports: No Symptoms reported Cardiac: reports: No Symptoms Reported GI: reports: Abdominal cramping : reports: No Symptoms Reported Musculoskeletal: reports: No Symptoms Reported Integumentary: reports: Other (Cut (R) thumb on a broken stem - 2-3 days ago. Hurts at fingertip. Thinks feels glass.) Neuro: reports: Tremors, Other (Legs shaking) Endocrine: reports: Increased Thirst, Change in Weight (weight loss r/t not eating while using drugs) Hematology: reports: No Symptoms Reported Psychiatric: reports: Judgement Intact, Agitated, Anxious, Depressed (Denies thoughts of harming self or others.) Patient History - Patient Medical History Hx Anemia: Yes (NO PILLS) Hx Asthma: No Hx Chronic Obstructive Pulmonary Disease (COPD): No Hx Cancer: No Hx Cardiac Disorders: No Hx Congestive Heart Failure: No Hx Hypertension: No Hx Hypercholesterolemia: No Hx Pacemaker: No HX Cerebrovascular Accident: No Hx Seizures: No Hx Dementia: No Hx Diabetes: No Hx Gastrointestinal Disorders: No Hx Liver Disease: No Hx Genitourinary Disorders: No Hx Sexually Transmitted Disorders: No Hx Renal Disease (ESRD): No Hx Thyroid Disease: No Hx Human Immunodeficiency Virus (HIV): No (NEGATIVE HX) Hx Hepatitis C: No (negative) Hx Depression: Yes Hx Suicide Attempt: No Hx Bipolar Disorder: Yes (hospitalized 01/24/19 [facility]) Hx Schizophrenia: No - Patient Surgical History Past Surgical History: Yes Hx Neurologic Surgery: No Hx Cataract Extraction: No Hx Cardiac Surgery: No Hx Lung Surgery: No Hx Breast Surgery: No Hx Breast Biopsy: No Hx Abdominal Surgery: No Hx Appendectomy: No Hx Cholecystectomy: No Hx Genitourinary Surgery: No Hx Section: No Hx Orthopedic Surgery: Yes (BOTH UPPER ARM DUE TO IVDU ABCESS 12/2016) Hx Hysterectomy: No Other Surgical History: Fx nasal. Anesthesia Reaction: No - PPD History Previous Implant?: Yes (Did not stay long enough for interpretation) Implanted On Prior [facility] Admission?: Yes Date: 01/24/19 (Will order TB Gold (QTF)) Results: TBD PPD to be Administered?: No - Reproductive History Patient is a Female of Child Bearing Age (11 -55 yrs old): Yes Last Menstrual Period: 05/12/19 (Hx abnormal menses) Patient : No - Smoking Cessation Smoking history: Former smoker (Stopped smoking 2 months.) Have you smoked in the past 12 months: Yes Aproximately how many cigarettes per day: 0 Hx Chewing Tobacco Use: No Initiated information on smoking cessation: Yes 'Breaking Loose' booklet given: 06/03/19 - Substance & Tx. History Hx Alcohol Use: No Hx Substance Use: Yes Substance Use Type: Cocaine, Heroin Hx Substance Use Treatment: Yes (detox, ) - Substances abused Heroin Substance route: Injection Frequency: Daily Amount used: 35 to 45 dollars Age of first use: 26 Date of last use: 06/03/19 Cocaine Substance route: Inhalation Frequency: Daily Amount used: 100 dollars Age of first use: 21 Date of last use: 04/18/19 Crack Substance route: Smoking Frequency: Daily Amount used: 15 to 20 bags Age of first use: 28 Date of last use: 06/02/19 Admission Physical Exam S - Vital Signs Vital Signs: Vital Signs - 24 hr 06/03/19 16:50 Temperature 98.6 F Pulse Rate 91 H Respiratory 20 Rate Blood Pressure 97/65 - Physical General Appearance: Yes: Mild Distress, Tremorous, Sweating (Increased facial moisture), Anxious HEENTM: Yes: EOMI (Slight jerking movement of eyes upon lateral gaze), Hearing grossly Normal, Normocephalic, Normal Voice, SALVADOR (Pupils = 6 mm), Pharynx Normal Respiratory: Yes: Lungs Clear (Pulse Ox = 96 %), Normal Breath Sounds, No Respiratory Distress Neck: Yes: No masses,lesions,Nodules, Supple Breast: Yes: Breast Exam Deferred Cardiology: Yes: Regular Rhythm, Regular Rate, S1, S2 Abdominal: Yes: Non Tender, Flat, Soft, Increased Bowel Sounds Genitourinary: Yes: Within Normal Limits Back: Yes: Other (Curvature of spine) Musculoskeletal: Yes: full range of Motion, Gait Steady Extremities: Yes: Normal Capillary Refill, Tremors 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 No masses felt.), Other (Small lesion approx 6 mm (R) thumb - wound examined and no foreign body found. no bleeding. No pululent discharge) Lymphatic: Yes: Within Normal Limits - Diagnostic (1) Opioid dependence with withdrawal Current Visit: Yes Status: Acute (2) Cocaine use disorder Current Visit: Yes Status: Chronic (3) History of abnormal electrocardiogram Current Visit: Yes Status: Chronic (4) Nicotine dependence in remission Current Visit: Yes Status: Chronic Qualifiers: Nicotine product type: cigarettes Qualified Code(s): F17.211 - Nicotine dependence, cigarettes, in remission Comment: x 2 months (5) Nystagmus Current Visit: Yes Status: Chronic (6) Laceration Current Visit: Yes Status: Acute Comment: 3 days ago. Superficial (R) thumb (7) Spinal curvature Current Visit: Yes Status: Chronic Cleared for Admission [facility] - Detox or Rehab [facility] Level of Care: Medically Managed Detox Regimen/Protocol: Methadone Claeared for Rehab Admission: No Breathalyzer - Breathalyzer Breathalyzer: 0 POC Urine test - Result Urine Test Results: Negative - NO line present Urine Drug Screen - Test Device Lot number: [id number] Expiration date: 01/31/21 - Control Is test valid?: Yes - Results Drug screen NEGATIVE: No Urine drug screen results: WONG-Cocaine, FEN-Fentanyl, MOP-Opiates Inpatient Rehab Admission - Rehab Decision to Admit Inpatient rehab admission?: No"
[2019-06-03] MEDS ORDERED: MENTHOL/PHENOL 1 EACH UD MM PRN (18:32)
[2019-06-03] MEDS ORDERED: MAGNESIUM CITRATE 300 ML BOTTLE PO PRN (18:32)
[2019-06-03] MEDS ORDERED: MAGNESIUM HYDROX 2400MG/30ML ORAL SUSPENSION 30 ML CUP PO PRN (18:32)
[2019-06-03] MEDS ORDERED: MELATONIN 5 MG TABLETS PO PRN (18:32)
[2019-06-03] MEDS ORDERED: MAG HYDROX/AL HYDROX/SIMETH 30 ML UNIT-DOSE CUP PO PRN (18:32)
[2019-06-03] MEDS ORDERED: cloNIDine HCL 0.1 MG TABLET PO PRN (18:32)
[2019-06-03] MEDS ORDERED: IBUPROFEN 400 MG TABLET (FP) PO PRN (18:32)
[2019-06-03] MEDS ORDERED: BISMUTH SUBSALICYLATE 524 MG/30 ML UD PO PRN (18:32)
[2019-06-03] MEDS ORDERED: ACETAMINOPHEN 325 MG TABLET (FP) PO PRN ×2 (18:32)
[2019-06-03] MEDS ORDERED: METHADONE HCL 10 MG TABLET (FOR DETOX USE ONLY) PO ONE (18:32)
[2019-06-03] MEDS ORDERED: diazePAM 5 MG TABLET ONE (19:26)
[2019-06-03] MEDS ORDERED: traZODone HCL 50 MG TABLET (FP) ONE (20:01)
[2019-06-03] MEDS ORDERED: METHADONE HCL 10 MG TABLET (FOR DETOX USE ONLY) ONE (20:01)
[2019-06-03] MEDS ORDERED: traZODone HCL 50 MG TABLET (FP) PO ONE (23:00)
[2019-06-03] MEDS: BACITRACIN 0.9 GM PACKET TP SCH (23:48)
[2019-06-03] MEDS: THIAMINE HCL 100 MG TABLET (FP) PO SCH (23:48)
[2019-06-04] MEDS ORDERED: traZODone HCL 50 MG TABLET (FP) PO ONE ×2 (02:24→20:21)
[2019-06-04] MEDS: diazePAM 5 MG TABLET PO PRN ×4 (02:31→20:09)
[2019-06-04] MEDS: METHOCARBAMOL 500 MG TABLET PO PRN ×2 (08:03→19:21)
[2019-06-04] MEDS ORDERED: METHADONE HCL 10 MG TABLET (FOR DETOX USE ONLY) ONE (09:05)
[2019-06-04] MEDS ORDERED: METHADONE HCL 5 MG TABLET (FOR DETOX USE ONLY) ONE (09:05)
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
[2019-06-04] MEDS ORDERED: METHADONE (DETOX) 20 MG, METHADONE (DETOX) 5 MG PO ONE (10:00)
[2019-06-04] MEDS: PRENATAL VITAMINS W/ FOLIC ACID TABLET (FP) PO SCH (10:14)
[2019-06-04] MEDS: BACITRACIN 0.9 GM PACKET TP SCH ×2 (10:15→23:32)
[2019-06-04 11:00] LABS: HEMATOCRIT 33.5 % (32.4-45.2); HEMOGLOBIN 11.2 GM/dL (10.7-15.3); MCH 29.6 pg (25.7-33.7); MCHC 33.3 g/dl (32.0-36.0); MEAN CELL VOLUME 88.7 fl (80-96); MEAN PLT VOLUME 8.7 fl (7.5-11.1); PLATELET COUNT 314 K/MM3 (134-434); RBC 3.77 M/mm3 (3.60-5.2); RDW 12.9 % (11.6-15.6); WHITE BLOOD COUNT 3.7 K/mm3 (4.0-10.0)
--- NOTE | 2019-06-04 11:03 | PN ---
[facility] COWS - Scale Resting Pulse: 0= [place] 80 or Below Sweatin= Chills/Flushing Restless Observation: 1= Difficult to Sit Still Pupil Size: 0= Normal to Room Light Bone or Joint Aches: 2= Severe Diffuse Aches Runny Nose/ Eye Tearin= Nasal Congestion GI Upset > 30mins: 0= None Tremor Observation of Outstretched Hands: 1= Tremor [place], Not Seen Yawning Observation: 1= 1-2x During Session Anxiety or Irritability: 2=Irritable/Anxious Goose Flesh Skin: 0=Smooth Skin COWS Score: 9 [facility] Progress Note (SOAP) Subjective: agitation restless irritable tired sweats Objective: 06/04/19 11:06 Vital Signs Temperature 97.5 F L 06/04/19 06:24 Pulse Rate 70 06/04/19 06:24 Respiratory Rate 16 06/04/19 06:24 Blood Pressure 97/58 L 06/04/19 06:24 O2 Sat by Pulse Oximetry (%) Laboratory Tests 06/03/19 06/04/19 17:20 08:00 WBC 3.7 L RBC 3.77 Hgb 11.2 Hct 33.5 MCV 88.7 MCH 29.6 MCHC 33.3 RDW 12.9 Plt Count 314 MPV 8.7 POC Urine HCG, Qual Negative rest of labs pending aaox3 ambulating no acute distress Assessment: 06/04/19 11:06 withdrawals Plan: continue detox increase fluids pending labs
[2019-06-04 11:06] LABS: ALBUMIN 3.3 g/dl (3.4-5.0); BILIRUBIN,TOTAL 0.4 mg/dL (0.2-1); BLOOD UREA NITROGEN 11.3 mg/dL (7-18); CALCIUM 8.7 mg/dL (8.5-10.1); CREATININE 0.7 mg/dL (0.55-1.3); POTASSIUM 4.2 mmol/L (3.5-5.1)
[2019-06-04] MEDS ORDERED: traZODone HCL 50 MG TABLET (FP) PO PRN (20:32)
--- NOTE | 2019-06-04 20:39 | PN ---
[facility] Progress Note (SOAP) Subjective: Wants to leave. States I feel sick. States I want to go home and use drugs. C/o yawns, chills, withdrawal. Yelling and screaming and threatening to break things. Patient requested to change from valium to clonazepam. Quieted down after adjustments made to medications. Objective: Yawning. Verbally loud and using foul language. Security reinforced the need for patient to remain on unit as had just received Trazodone 50 mg and was not considered able to make sound decisions. Vital Signs 06/04/19 06/05/19 21:11 00:30 Temperature 98.4 F Pulse Rate 97 H Respiratory 18 18 Rate Blood Pressure 157/57 L Assessment: 06/04/19 20:36 Opioid withdrawal. Anger issues Plan: Medication Dose adjustments Discussed the importance of giving withdrawal symptoms a chance to subside.
[2019-06-04] MEDS ORDERED: METHADONE HCL 5 MG TABLET PO PRN (21:05)
[2019-06-04] MEDS ORDERED: traZODone HCL 50 MG TABLET (FP) PO SCH (22:00)
[2019-06-04] MEDS: clonazePAM 0.5 MG TABLET PO PRN (23:22)
[2019-06-04] MEDS: THIAMINE HCL 100 MG TABLET (FP) PO SCH (23:32)
[2019-06-05] MEDS ORDERED: METHADONE HCL 10 MG TABLET (FOR DETOX USE ONLY) PO ONE ×3 (06:00→10:00)
[2019-06-05] MEDS ORDERED: METHADONE (DETOX) 10 MG, METHADONE (DETOX) 5 MG PO ONE (06:00)
[2019-06-05] MEDS: clonazePAM 0.5 MG TABLET PO PRN ×2 (06:28→10:51)
[2019-06-05 07:20] VITALS: TEMP 97.9
[2019-06-05 09:57] VITALS: BP 98/55; PULSE 67
[2019-06-05] MEDS: PRENATAL VITAMINS W/ FOLIC ACID TABLET (FP) PO SCH (10:49)
[2019-06-05] MEDS: BACITRACIN 0.9 GM PACKET TP SCH (10:49)
--- NOTE | 2019-06-05 13:16 | PN ---
[facility] COWS - Scale Resting Pulse: 0= [place] 80 or Below Sweatin= Chills/Flushing Restless Observation: 1= Difficult to Sit Still Pupil Size: 0= Normal to Room Light Bone or Joint Aches: 1= Mild Discomfort Runny Nose/ Eye Tearin= Nasal Congestion GI Upset > 30mins: 1= Stomach Cramp Tremor Observation of Outstretched Hands: 0= None Yawning Observation: 1= 1-2x During Session Anxiety or Irritability: 1=Feels Anxious/Irritable Goose Flesh Skin: 0=Smooth Skin COWS Score: 7 BHS Progress Note (SOAP) Subjective: sleepy sweats tired Objective: 06/05/19 13:15 Vital Signs Temperature 97.9 F 06/05/19 09:56 Pulse Rate 67 06/05/19 09:56 Respiratory Rate 16 06/05/19 09:56 Blood Pressure 98/55 L 06/05/19 09:56 O2 Sat by Pulse Oximetry (%) Laboratory Tests 06/03/19 06/04/19 06/04/19 17:20 08:00 08:00 WBC 3.7 L RBC 3.77 Hgb 11.2 Hct 33.5 MCV 88.7 MCH 29.6 MCHC 33.3 RDW 12.9 Plt Count 314 MPV 8.7 Sodium 142 Potassium 4.2 Chloride 109 H Carbon Dioxide 28 Anion Gap 5 L BUN 11.3 Creatinine 0.7 Est GFR (CKD-EPI)AfAm 136.66 Est GFR (CKD-EPI)NonAf 117.91 Random Glucose 81 Calcium 8.7 Total Bilirubin 0.4 AST 12 L ALT 16 Alkaline Phosphatase 77 Total Protein 7.0 Albumin 3.3 L POC Urine HCG, Qual Negative aaox3 lying in bed cooperating with questions being asked no acute distress Assessment: 06/05/19 13:16 withdrawals Plan: continue detox
--- NOTE | 2019-06-05 15:52 | PN ---
[facility] Progress Note Note: pt was admitted in withdrawals. pt continue to c/o of withdrawals and aggressive symptomatic management attempted however pt in spite of extensive motivational counseling regarding OD, seizures, and or loss, pt chose to sign out AMA.
--- NOTE | 2019-06-05 15:56 | DS ---
[facility] Detox Discharge Summary Admission Date: 06/03/19 Discharge Date: 06/05/19 - History Present History: Cocaine Dependence, Opioid Dependence - Physical Exam Results Vital Signs: Vital Signs Temperature 97.9 F 06/05/19 09:56 Pulse Rate 67 06/05/19 09:56 Respiratory Rate 16 06/05/19 09:56 Blood Pressure 98/55 L 06/05/19 09:56 O2 Sat by Pulse Oximetry (%) Pertinent Admission Physical Exam Findings: pt arrived in withdrawals Laboratory Tests 06/03/19 06/04/19 06/04/19 17:20 08:00 08:00 WBC 3.7 L RBC 3.77 Hgb 11.2 Hct 33.5 MCV 88.7 MCH 29.6 MCHC 33.3 RDW 12.9 Plt Count 314 MPV 8.7 Sodium 142 Potassium 4.2 Chloride 109 H Carbon Dioxide 28 Anion Gap 5 L BUN 11.3 Creatinine 0.7 Est GFR (CKD-EPI)AfAm 136.66 Est GFR (CKD-EPI)NonAf 117.91 Random Glucose 81 Calcium 8.7 Total Bilirubin 0.4 AST 12 L ALT 16 Alkaline Phosphatase 77 Total Protein 7.0 Albumin 3.3 L POC Urine HCG, Qual Negative today pt chose to leave AMA. pt refused to maintain in our detox and continue with her regimen. - Treatment Patient has Accepted a Rehab Referral to: declined rehab and referral - Medication Discharge Medications: Ambulatory Orders NK [No Known Home Medication] 01/22/19 - Diagnosis (1) Cocaine dependence Current Visit: Yes Status: Chronic Qualifiers: Substance use status: uncomplicated Qualified Code(s): F14.20 - Cocaine dependence, uncomplicated (2) Substance induced mood disorder Current Visit: Yes Status: Acute (3) Substance-induced sleep disorder Current Visit: Yes Status: Acute (4) Borderline personality disorder Current Visit: Yes Status: Ruled-out (5) Opioid dependence with withdrawal Current Visit: Yes Status: Acute (6) Bipolar disorder Current Visit: No Status: Chronic Qualifiers: Active/Remission status: currently active Current bipolar episode type: mixed Current episode severity: moderate Qualified Code(s): F31.62 - Bipolar disorder, current episode mixed, moderate (7) Induration at injection site Current Visit: Yes Status: Chronic (8) Nicotine dependence Current Visit: Yes Status: Chronic Qualifiers: Nicotine product type: cigarettes Substance use status: uncomplicated Qualified Code(s): F17.210 - Nicotine dependence, cigarettes, uncomplicated (9) Spinal curvature Current Visit: No Status: Chronic - AMA Did Patient Leave Against Medical Advice: Yes
[2019-06-05] MEDS ORDERED: diazePAM 5 MG TABLET PO PRN (22:30)
[2019-06-06] MEDS ORDERED: METHADONE (DETOX) 10 MG, METHADONE (DETOX) 5 MG PO ONE ×2 (06:00→10:00)
[2019-06-07] MEDS ORDERED: METHADONE HCL 10 MG TABLET (FOR DETOX USE ONLY) PO ONE ×2 (06:00→10:00)
[2019-06-08] MEDS ORDERED: METHADONE HCL 5 MG TABLET (FOR DETOX USE ONLY) PO ONE (06:00)
== END 2019-06-05 03:43 | disposition left against medical advice (07) | DRG 770 ==
LOC: YASAS 15:27 → Y6N 19:02
PROVIDERS: ADMIT Surgery; ATTEND Surgery
PROC: HZ2ZZZZ Detoxification Services for Substance Abuse Treatment (ICD-10-PCS; principal; 2019-06-03)
DX: F11.23 Opioid dependence with withdrawal (principal); F14.20 Cocaine dependence, uncomplicated; F17.210 Nicotine dependence, cigarettes, uncomplicated; F19.24 Other psychoactive substance dependence with psychoactive substance-induced mood disorder; F19.282 Other psychoactive substance dependence with psychoactive substance-induced sleep disorder; F31.62 Bipolar disorder, current episode mixed, moderate; F60.3 Borderline personality disorder; H55.00 Unspecified nystagmus; R23.4 Changes in skin texture; M41.9 Scoliosis, unspecified
CPT/HCPCS: 36415; 80053; 81025; 85027; J0735

== ENCOUNTER 2021-04-01 10:23 | Inpatient (IN) | payer OTHER ==
[2021-04-01 13:18] VITALS: BMI 19.2
[2021-04-01] MEDS ORDERED: MAGNESIUM HYDROX 2400MG/30ML ORAL SUSPENSION 30 ML CUP PO PRN (13:20)
[2021-04-01] MEDS ORDERED: MAG HYDROX/AL HYDROX/SIMETH 30 ML UNIT-DOSE CUP PO PRN (13:20)
[2021-04-01] MEDS ORDERED: ACETAMINOPHEN 325 MG TABLET (FP) PO PRN ×2 (13:20)
[2021-04-01] MEDS ORDERED: NICOTINE POLACRILEX 4 MG GUM BUC PRN (13:20)
[2021-04-01] MEDS ORDERED: IBUPROFEN 400 MG TABLET (FP) PO PRN (13:20)
[2021-04-01] MEDS ORDERED: ONDANSETRON *ODT* 4 MG TABLET SL PRN (13:20)
[2021-04-01] MEDS ORDERED: methaDONE HCL 10 MG TABLET (FOR DETOX USE ONLY) PO ONE (13:20)
[2021-04-01] MEDS ORDERED: MAGNESIUM CITRATE 300 ML BOTTLE PO PRN (13:20)
[2021-04-01] MEDS ORDERED: METHOCARBAMOL 500 MG TABLET PO PRN (13:20)
[2021-04-01] MEDS ORDERED: MENTHOL/PHENOL 1 EACH UD MM PRN (13:20)
[2021-04-01] MEDS ORDERED: BISMUTH SUBSALICYLATE 524 MG/30 ML PO PRN (13:20)
[2021-04-01] MEDS ORDERED: cloNIDine HCL 0.1 MG TABLET PO PRN (13:20)
[2021-04-01] MEDS ORDERED: diazePAM 2 MG TABLET PO PRN (13:25)
[2021-04-01 14:47] LABS: HEMATOCRIT 34.4 % (32.4-45.2); HEMOGLOBIN 11.4 GM/dL (10.7-15.3); MCH 29.9 pg (25.7-33.7); MEAN CELL VOLUME 90.5 fl (80-96); PLATELET COUNT 261 10^3/uL (134-434); WHITE BLOOD COUNT 6.1 K/mm3 (4.0-10.0)
[2021-04-01 14:49] LABS: ALBUMIN 3.7 g/dl (3.4-5.0); BLOOD UREA NITROGEN 15.3 mg/dL (7-18); CALCIUM 8.7 mg/dL (8.5-10.1)
[2021-04-01 14:53] LABS: CREATININE 0.9 mg/dL (0.55-1.3)
[2021-04-01 14:54] LABS: BILIRUBIN,TOTAL 0.3 mg/dL (0.2-1); TOT PROT 7.6 g/dl (6.4-8.2)
[2021-04-01] MEDS ORDERED: diazePAM 5 MG TABLET PO PRN (15:32)
[2021-04-01] MEDS ORDERED: hydrOXYzine PAMOATE 25 MG CAPSULE (FP) PO ONE (15:49)
[2021-04-01] MEDS ORDERED: methaDONE HCL 10 MG TABLET (FOR DETOX USE ONLY) ONE (15:49)
[2021-04-01] MEDS: hydrOXYzine PAMOATE 25 MG CAPSULE (FP) PO SCH ×3 (15:55→22:41)
[2021-04-01] MEDS: PRENATAL VITAMINS W/ FOLIC ACID TABLET (FP) PO SCH (15:55)
[2021-04-01 18:13] LABS: HIV INTERPRETATION NEGATIVE (NEGATIVE)
[2021-04-01] MEDS ORDERED: MELATONIN 5 MG TABLETS PO SCH (22:00)
[2021-04-01] MEDS ORDERED: THIAMINE HCL 100 MG TABLET (FP) PO SCH (22:00)
[2021-04-02] MEDS: hydrOXYzine PAMOATE 25 MG CAPSULE (FP) PO SCH ×2 (06:10→09:27)
[2021-04-02] MEDS ORDERED: methaDONE HCL 10 MG TABLET (FOR DETOX USE ONLY) ONE (08:57)
[2021-04-02 08:59] VITALS: BP 108/64; PULSE 94; TEMP 98.4
[2021-04-02] MEDS ORDERED: MASKS NR ONE (09:25)
[2021-04-02] MEDS: PRENATAL VITAMINS W/ FOLIC ACID TABLET (FP) PO SCH (09:28)
[2021-04-02] MEDS ORDERED: MELATONIN 5 MG TABLETS PO SCH (09:55)
[2021-04-03] MEDS ORDERED: methaDONE HCL 10 MG TABLET (FOR DETOX USE ONLY) PO ONE (10:00)
[2021-04-05] MEDS ORDERED: methaDONE HCL 10 MG TABLET (FOR DETOX USE ONLY) PO ONE (10:00)
== END 2021-04-02 11:08 | disposition left against medical advice (07) | DRG 770 ==
LOC: YASAS 10:23 → Y6N 16:37
PROVIDERS: ADMIT Allergy & Immunology; ATTEND Allergy & Immunology
PROC: HZ2ZZZZ Detoxification Services for Substance Abuse Treatment (ICD-10-PCS; principal; 2021-04-01)
DX: F11.23 Opioid dependence with withdrawal (principal); F14.20 Cocaine dependence, uncomplicated; F17.210 Nicotine dependence, cigarettes, uncomplicated; F41.9 Anxiety disorder, unspecified; F19.24 Other psychoactive substance dependence with psychoactive substance-induced mood disorder; F19.282 Other psychoactive substance dependence with psychoactive substance-induced sleep disorder; F31.62 Bipolar disorder, current episode mixed, moderate; G47.00 Insomnia, unspecified; Z56.0 Unemployment, unspecified
CPT/HCPCS: 36415; 80053; 81025; 85027; 86780; 87389; C9803; U0003; U0005

== ENCOUNTER 2022-05-30 16:15 | Inpatient (IN) | payer OTHER ==
[2022-05-30 19:17] VITALS: BMI 20.9
[2022-05-30] MEDS ORDERED: METHOCARBAMOL 500 MG TABLET PO PRN (19:56)
[2022-05-30] MEDS ORDERED: MAGNESIUM CITRATE 300 ML BOTTLE PO PRN (19:56)
[2022-05-30] MEDS ORDERED: hydrOXYzine PAMOATE 25 MG CAPSULE (FP) PO PRN (19:56)
[2022-05-30] MEDS ORDERED: MAGNESIUM HYDROX 2400MG/30ML ORAL SUSPENSION 30 ML CUP PO PRN (19:56)
[2022-05-30] MEDS ORDERED: LOPERAMIDE HCL 2 MG CAPSULE PO PRN (19:56)
[2022-05-30] MEDS ORDERED: MAG HYDROX/AL HYDROX/SIMETH 30 ML UNIT-DOSE CUP PO PRN (19:56)
[2022-05-30] MEDS ORDERED: ONDANSETRON *ODT* 4 MG TABLET SL PRN (19:56)
[2022-05-30] MEDS ORDERED: ACETAMINOPHEN 325 MG TABLET (FP) PO PRN ×2 (19:56)
[2022-05-30] MEDS ORDERED: DICYCLOMINE HCL 10 MG CAPSULE PO PRN (19:56)
[2022-05-30] MEDS ORDERED: BISMUTH SUBSALICYLATE 524 MG/30 ML PO PRN (19:56)
[2022-05-30] MEDS ORDERED: guaiFENesin 200 MG/10 ML 10 ML UNIT-DOSE CUPS PO PRN (19:56)
[2022-05-30] MEDS ORDERED: IBUPROFEN 400 MG TABLET (FP) PO PRN (19:56)
[2022-05-30] MEDS ORDERED: P-EPHED 60MG/TRIPROLIDI 2.5MG TABLET PO PRN (19:56)
[2022-05-30] MEDS ORDERED: IBUPROFEN 600 MG TABLET (FP) PO PRN (19:56)
[2022-05-30] MEDS ORDERED: NALOXONE HCL (KLOXXADO) 8 MG SPRAY NS PRN (19:56)
[2022-05-30] MEDS ORDERED: BENZOCAINE/MENTHOL (CHLORASEPTIC ) LOZENGE MM PRN (19:56)
[2022-05-30] MEDS ORDERED: MELATONIN 5 MG TABLETS PO PRN (19:56)
[2022-05-30] MEDS ORDERED: cloNIDine HCL 0.1 MG TABLET PO PRN (20:00)
[2022-05-30] MEDS: diazePAM 5 MG TABLET PO PRN (21:23)
[2022-05-30] MEDS ORDERED: THIAMINE HCL 100 MG TABLET (FP) PO SCH (22:00)
[2022-05-30] MEDS ORDERED: methaDONE HCL 10 MG TABLET (FOR DETOX USE ONLY) PO ONE (23:00)
[2022-05-31] MEDS: diazePAM 5 MG TABLET PO PRN ×4 (01:40→15:16)
[2022-05-31] MEDS ORDERED: methaDONE HCL 10 MG TABLET (FOR DETOX USE ONLY) PO ONE (10:00)
[2022-05-31] MEDS ORDERED: PRENATAL VITAMINS W/ FOLIC ACID TABLET (FP) PO SCH (10:00)
[2022-05-31 10:41] LABS: HEMATOCRIT 31.8 % (32.4-45.2); HEMOGLOBIN 10.4 GM/dL (10.7-15.3); MCH 27.3 pg (25.7-33.7); MCHC 32.5 g/dl (32.0-36.0); MEAN CELL VOLUME 83.8 fl (80-96); MEAN PLT VOLUME 8.6 fl (7.5-11.1); PLATELET COUNT 274 10^3/uL (134-434); RBC 3.79 M/mm3 (3.60-5.2); RDW 15.7 % (11.6-15.6); WHITE BLOOD COUNT 4.6 K/mm3 (4.0-10.0)
[2022-05-31 10:45] LABS: ALBUMIN 3.2 g/dl (3.4-5.0); BLOOD UREA NITROGEN 10.4 mg/dL (7-18); CALCIUM 8.9 mg/dL (8.5-10.1)
[2022-05-31 10:48] LABS: CREATININE 0.7 mg/dL (0.55-1.3)
[2022-05-31 10:50] LABS: BILIRUBIN,TOTAL 0.4 mg/dL (0.2-1); TOT PROT 6.5 g/dl (6.4-8.2)
[2022-05-31 13:03] VITALS: BP 114/68; PULSE 72; RESP 16; TEMP 98.1
[2022-05-31] MEDS ORDERED: SUVOREXANT 10 MG TABLET PO PRN (22:00)
[2022-06-02] MEDS ORDERED: methaDONE HCL 10 MG TABLET (FOR DETOX USE ONLY) PO ONE (10:00)
== END 2022-05-31 15:48 | disposition left against medical advice (07) | DRG 770 ==
LOC: YASAS 16:15 → Y6N 20:16
PROVIDERS: ADMIT Allergy & Immunology; ATTEND Surgery
PROC: HZ2ZZZZ Detoxification Services for Substance Abuse Treatment (ICD-10-PCS; principal; 2022-05-30)
DX: F11.23 Opioid dependence with withdrawal (principal); F17.210 Nicotine dependence, cigarettes, uncomplicated; F31.62 Bipolar disorder, current episode mixed, moderate; F19.282 Other psychoactive substance dependence with psychoactive substance-induced sleep disorder; F19.24 Other psychoactive substance dependence with psychoactive substance-induced mood disorder; R63.4 Abnormal weight loss; Z68.20 Body mass index [BMI] 20.0-20.9, adult; Z28.310 Unvaccinated for COVID-19; Z28.9 Immunization not carried out for unspecified reason
CPT/HCPCS: 36415; 80053; 81025; 85027; 86780; C9803-CS; U0003; U0005